=== PATIENT | female | born 1950 | race Caucasian/White ===

== ENCOUNTER 2023-10-24 11:59 | Inpatient (IN) ==
[2023-10-24] MEDS ORDERED: ONDANSETRON INJ 2 MG/ML 2 ML VIAL IV STA (12:25)
[2023-10-24] MEDS ORDERED: SODIUM CHLORIDE 0.9% 1,000 ML IV STA (12:25)
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
[2023-10-24] MEDS: MoRPHine SULFATE 4 MG/ML 1 ML CARP\\VIAL IV PRN ×6 (12:51→23:05)
[2023-10-24 13:01] LABS: Basophils # (auto) 0.05 K/uL (0.00-0.20); Basophils % (auto) 0.4 %; Eosinophils # (auto) 0.02 K/uL (0.00-0.50); Eosinophils % (auto) 0.2 %; Hematocrit (blood only) 40.8 % (37.0-47.0); Hemoglobin 14.1 g/dl (12.0-16.0); Immature Granulocytes # (auto) 0.08 K/uL (0.01-0.20); Immature Granulocytes % (auto) 0.6 %; Lymphocytes % (auto) 5.5 %; Mean Corpuscular Hemoglobin 33.8 pg (25.0-34.0); Mean Corpuscular Hgb Conc 34.6 g/dL (32.0-36.0); Mean Corpuscular Volume 97.8 fL (80.0-100.0); Monocytes # (auto) 0.68 K/uL (0.11-0.59); Monocytes % (auto) 5.3 %; Neutrophils # (auto) 11.28 K/uL (1.40-6.50); Platelet Count 273 K/uL (130-400); RDW Coefficient of Variation 11.8 % (11.5-14.5); RDW Standard Deviation 42.7 fL (36.4-46.3); Red Blood Count 4.17 M/uL (4.20-5.40); White Blood Count 12.81 K/ul (4.8-10.8)
[2023-10-24 13:11] LABS: Alanine Aminotransferase 15 U/L (7-52); Albumin Level 4.1 gm/dl (3.4-5.0); Alkaline Phosphatase 52 U/L (34-104); Anion Gap 6 (3-11); Aspartate Aminotransferase 19 U/L (13-39); BUN Creatinine Ratio 17.9 (10-20); Bilirubin,Total 0.3 mg/dl (0.2-1.0); Blood Urea Nitrogen 14 mg/dl (6-23); Calcium 8.3 mg/dl (8.6-10.3); Carbon Dioxide 27 mmol/L (21-32); Chloride 101 mmol/L (98-107); Globulin 2.1 gm/dl (2.5-4.0); Glucose 129 mg/dl (70-99(Fasting)); Lipase 6 U/L (11-82); Potassium 3.8 mmol/L (3.5-5.1); Sodium 134 mmol/L (136-145); Total Protein 6.2 gm/dl (6.0-8.3)
[2023-10-24 13:16] LABS: Troponin I High Sensitivity 7.5 pg/ml (0-14)
[2023-10-24 13:29] LABS: INR 0.9 (0.9-1.1); Partial Thromboplastin Time 27 Seconds (21-31); Prothrombin Time 10.3 Seconds (9.0-12.0)
[2023-10-24 13:49] LABS: Appearance Urine Clear (Clear); Bilirubin Urine Negative (Negative); Blood Urine Negative (Negative); Color Urine Yellow; Glucose Urine UA Negative (Negative); Ketones Urine Negative (Negative); Leukocyte Esterase Urine Negative (Negative); Nitrite Urine Negative (Negative); Protein Urine Negative (Negative); Specific Gravity Urine 1.011 (1.000-1.030); Urobilinogen Urine Negative (Negative); pH Urine 7.5 (4.5-7.5)
--- NOTE | 2023-10-24 14:25 | XRay Report ---
XR hip LT 2V w pelvis CLINICAL HISTORY: Fall. COMPARISON: CT of the abdomen and pelvis June 20, 2023. FINDINGS: Postoperative findings within the spine are incidentally noted. Sacroiliac joints and symp hysis pubis are intact. There is an acute moderately displaced significantly comminuted intertrochant madelaine fracture of the left femur. No additional acute fractures are present. IMPRESSION: Acute comminuted displaced intertrochanteric fracture of the left femur. ACT 112: Negative or not required by law. Electronically signed by: Mark Giang M.D. 10/24/2023 2:24 PM
--- NOTE | 2023-10-24 14:43 | XRay Report ---
XR chest 1V portable HISTORY: fall COMPARISON: Chest 01/26/2019. FINDINGS: Slightly rotated study. No pneumothorax. No pleural effusions. The cardiac silhouette is no rmal in size. Old left clavicle fracture again noted. No acute fractures identified. The lungs are cl ear. IMPRESSION: No acute process. ACT 112: Negative or not required by law. Electronically signed by: Bradley Trevizo M.D. 10/24/2023 2:42 PM
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
--- OUTSIDE RECORDS SUMMARY | 2023-10-24 20:10 | External Medical Summary | Continuity of Care Document ---
Author Name Unknown Organization [facility] [address] [place] [id number] Care Team Providers Care Architecture Technician Name Role Phone Nichol Pham Primary Care Physician [phone] [facility] [id number] Date(s): 07/26/23 - 07/26/23 [facility] [address] [place] [address] Medical [facility] [address] [phone] Encounter Diagnosis History of colon polyps(Discharge Diagnosis) - 07/26/23 Acquired hyperlipoproteinemia(Discharge Diagnosis) - 07/26/23 Neuropathy(Discharge Diagnosis) - 07/26/23 Neuropathic pain(Discharge Diagnosis) - 07/26/23 Hypertension(Discharge Diagnosis) - 07/26/23 Anxiety(Discharge Diagnosis) - 07/26/23 Flu vaccine need(Discharge Diagnosis) - 07/26/23 Discharge Disposition: Home or Self Care Attending Physician: ZAYRA Pham Kimberly A Allergies, Adverse Reactions, Alerts No Known Allergies Immunizations Given and Recorded Vaccine Date Status Refusal Reason influenza virus vaccine, inactivated 07/26/23 Give n influenza virus vaccine, inactivated 08/24/20 Give n influenza virus vaccine, inactivated 09/25/19 Give n influenza virus vaccine, inactivated 10/10/18 Give n pneumococcal 23-valent vaccine 09/19/19 Given tetanus/diphtheria/pertuss, acel (Tdap) 02/15/16 G iven Medications calcium carbonate 600 mg oral tablet, chewable Start: 05/25/22 12:21:00 EDT, 1 tab, PO, Daily, Disp# 60 tab, other Start Date: 05/25/22 Status: Ordered Carbatrol Start: 04/16/17 10:15:00 EDT, 300 mg =, PO, bid Start Date: 04/16/17 Status: Ordered Flexeril 10 mg oral tablet Start: 07/23/23 14:00:00 EDT, 1 tab, PO, qhs, Disp# 30 tab, Refills: 4, PRN: as needed for spasm, Pharmacy: [id number] Start Date: 07/23/23 Status: Ordered gabapentin 100 mg oral capsule Start: 06/27/23 13:35:00 EDT, 1 cap, PO, tid, Disp# 270 cap, Pharmacy: [facility] Start Date: 06/27/23 Stop Date: 09/25/23 Status: Ordered gabapentin 100 mg oral capsule Start: 04/12/23 15:24:00 EDT, See Instructions, Disp# 90 cap, Refills: 3, take 1 cap nightly for 3 days, then take 1 cap twice a day for 3 days, then take 1 cap 3 times a day, Pharmacy: [facility] Start Date: 04/12/23 Status: Ordered gabapentin 300 mg oral capsule Start: 06/27/23 13:06:00 EDT, 1 cap, PO, tid, Disp# 30 cap Start Date: 06/27/23 Status: Ordered gabapentin 300 mg oral capsule Start: 06/27/23 13:34:00 EDT, 1 cap, PO, tid, Disp# 270 cap, Refills: 1, Pharmacy: [facility] Start Date: 06/27/23 Stop Date: 12/24/23 Status: Ordered Linzess 145 mcg oral capsule Start: 06/27/23 13:07:00 EDT Start Date: 06/27/23 Status: Ordered multivitamin Start: 05/25/22 9:19:00 EDT, 1 tab, PO, Daily Start Date: 05/25/22 Status: Ordered Prolia 60 mg syringe - PROVIDER injection Start: 03/24/21 9:53:00 EDT Start Date: 03/24/21 Status: Ordered Vitamin D3 2000 intl units (50 mcg) oral capsule Start: 05/25/22 12:20:00 EDT, 1 cap, PO, Daily, Disp# 60 cap, other Start Date: 05/25/22 Status: Ordered Mental Status 07/26/23 Barriers to Learning one year None evide nt Mandatory Health Literacy Documentation Yes Health Literacy Communication Barriers N ever Primary Language Luxembourger Problem List Condition Confirmation Course Effective Dates [...] Confirmed Active Flu vaccine need Confirmed Active Neuropathic pain Confirmed Active Neuropathy of foot Confirmed Active Pain Confirmed Active Bilateral leg pain Confirmed Active Seizure Confirmed Active Seizure disorder Confirmed Active Sinusitis Confirmed Active Muscle spasm Confirmed Active Sprain of ankle Confirmed Active Postop check Confirmed Active Retained suture Confirmed Active Syncope Confirmed Active Viral gastroenteritis Confirmed Active Weight disorder Confirmed Active Diagnosis Diagnosis Type Effective Dates Health Status Clinical Service Informant Neuropathic pain Discharge Diagnosis 07/26/23 Hypertension Discharge Diagnosis 07/26/23 Anxiety Discharge Diagnosis 07/26/23 History of colon polyps Discharge Diagnosis 07/26/23 Non-Specifie d Neuropathy Discharge Diagnosis 07/26/23 Non-Specifie d Acquired hyperlipoproteinemia Discharge Diagnosis 07/26/23 Non-Specifie d Flu vaccine need Discharge Diagnosis 07/26/23 Non-Specifie d Procedures Procedure Date Related Diagnosis Body Site [...] 30 and 15 cm cold snared. recoomend [place] for EMR of polyp 5tentative repeat colo 1 year Vital Signs Most recent to oldest [Reference Range]: 1 Patient Weight 77 kg (07/26/23 4:20 PM) Temperature [36.5-37.9 DegC] 37 DegC (07/26/23 4:20 PM) Heart Rate 68 bpm (07/26/23 4:20 PM) Respiratory Rate 22 br/min (07/26/23 4:20 PM) Blood Pressure 136/72mmHg (07/26/23 4:20 PM) Cuff Pulse Pressure 64 mmHg (07/26/23 4:20 PM) Social History Social History Type Response Smoking Status Never smoked cigaret bhargavi Sex Female Implantable Device List Procedure Provider Procedure Date Device Type Site Unknown Unknown 12/25/19 Unknown Unknown Device Identifier Serial Number Lot or Batch Number Manufacturing Date Expiration Date Distinct Identification Code MRI Safety Implantable Status Assigning Authority Unknown Unknown [id number] Unknown 04/03/21 Unknown Unknown Active Unknown Unknown Unknown [id number] Unknown 08/03/21 Unknown Unknown Active Unknown Unknown Unknown [id number] Unknown 01/01/21 Unknown Unknown Active Unknown Procedure Provider Procedure Date Device Type Site Unknown Unknown 09/22/19 Unknown Unknown Device Identifier Serial Number Lot or Batch Number Manufacturing Date Expiration Date Distinct Identification Code MRI Safety Implantable Status Assigning Authority Unknown Unknown [id number] Unknown 03/04/21 Unknown Unknown Active Unknown Unknown Unknown [id number] Unknown 11/04/22 Unknown Unknown Active Unkn own Unknown Unknown [id number] Unknown 04/04/22 Unknown Unknown Active Unkn own Unknown Unknown [id number] Unknown 06/04/24 Unknown Unknown Active Unkn own Unknown Unknown [id number] Unknown 03/03/28 Unknown Unknown Active Unk nown Procedure Provider Procedure Date Device Type Site Unknown Unknown 09/16/19 Unknown Unknown Device Identifier Serial Number Lot or Batch Number Manufacturing Date Expiration Date Distinct Identification Code MRI Safety Implantable Status Assigning Authority Unknown Unknown [id number] Unknown 11/03/19 Unknown Unknown Active Unk nown [...] Unknown Unknown Active Unkn own Unknown Unknown [id number] aae Unknown 03/04/21 Unknown Unknown Active Unknown Unknown Unknown na Unknown 04/14/22 Unknown Unknown Active Unkn own Unknown Unknown na Unknown 04/14/22 Unknown Unknown Active Unkn own Unknown Unknown na Unknown 06/02/22 Unknown Unknown Active Unkn own Patient Care team information Care Team Personnel Name: ZAYRA Pham, Nichol Wen Position: Physician Upholsterer [employer] - Family Med Member Role: Primary Care Provider Address: Address: [address] [address] [place] Name: Burton Buchanan MD, Jose Bliss Position: Physician - Anesthesiologist Member Role: Lifetime Relationship Address: Address: [address] [place] [address] [place] Name: Sherice Hamlin Position: HIS Supervisor_P Member Role: HIS Lifetime Care Team Related Persons Name: LOBO HAZEL Address: home [address] [place], [place] [id number]
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
--- OUTSIDE RECORDS SUMMARY | 2023-10-24 20:10 | External Medical Summary | Continuity of Care Document ---
Author Name Unknown Organization [place] [address] [address] [place] [phone] Care Team Providers Care Acid Tank Liner Name Role Phone Ankit Nichol Bettye Primary Care Physician [phone] [id number] Date(s): 06/27/23 - 06/27/23 [facility] [address] Practice Site [address] [facility] [address] [place], [place] [address]Vpcyw [phone] Discharge Disposition: Home or Self Care Attending Physician: DO Hedrick Gretchen Elizabeth Allergies, Adverse Reactions, Alerts No Known Allergies Immunizations Given and Recorded Vaccine Date Status Refusal Reason influenza virus vaccine, inactivated 08/24/20 Give n influenza virus vaccine, inactivated 09/25/19 Give n influenza virus vaccine, inactivated 10/10/18 Give n pneumococcal 23-valent vaccine 09/19/19 Given tetanus/diphtheria/pertuss, acel (Tdap) 14/16 G iven Medications calcium carbonate 600 mg [...] Disp# 90 cap, Refills: 1, with breakfast, Pharmacy:[facility] [id number] Start Date: 04/17/21 Status: Ordered Flexeril 10 mg oral tablet Start: 06/27/23 13:36:00 EDT, 1 tab, PO, bid, Disp# 60 tab, Refills: 1, PRN: as needed for spasm, Pharmacy: [facility] Start Date: 06/27/23 Status: Ordered gabapentin 100 mg oral capsule Start: 06/27/23 13:35:00 EDT, 1 cap, PO, tid, Disp# 270 cap, Pharmacy: [facility] Start Date: 06/27/23 Stop Date: 09/25/23 Status: Ordered gabapentin 100 mg oral capsule Start: 04/12/23 15:24:00 EDT, See Instructions, Disp# 90 cap, Refills: 3, take 1 cap nightly for 3 days, then take 1 cap twice a day for 3 days, then take 1 cap 3 times a day, Pharmacy: [facility] Start Date: 04/12/23 Status: Ordered gabapentin 300 mg oral capsule Start: 06/27/23 13:06:00 EDT Start Date: 06/27/23 Status: Ordered gabapentin 300 mg oral capsule Start: 06/27/23 13:34:00 EDT, 1 cap, PO, tid, Disp# 270 cap, Refills: 1, Pharmacy: [facility] Start Date: 06/27/23 Stop Date: 12/24/23 Status: Ordered Linzess 145 mcg oral capsule Start: 06/27/23 13:07:00 EDT Start Date: 06/27/23 Status: Ordered Medrol Dosepak 4 mg oral tablet Start: 03/27/23 14:56:00 EDT, See Instructions, Disp# 21 tab, Take as directed on package labeling for 6 days., Pharmacy: [facility] Start Date: 03/27/23 Stop [...] Start Date: 05/25/22 Status: Ordered Mental Status 06/27/23 Barriers to Learning one year None evide nt Mandatory Health Literacy Documentation Yes Health Literacy Communication Barriers N ever Primary Language Honduran Problem List Condition Confirmation Course Effective Dates [...] gastroenteritis Confirmed Active Weight disorder Confirmed Active Procedures Procedure Date Related Diagnosis Body Site [...] to oldest [Reference Range]: 1 Patient Weight 77.0 kg (06/27/23 1:10 PM) Temperature [36.5-37.9 DegC] 36.8 DegC (06/27/23 1:10 PM) Blood Pressure 128/82mmHg (06/27/23 1:10 PM) BP Location # 1 Left Arm (06/27/23 1:10 PM) Social History Social History Type Response Smoking Status Never smoked cigaret bhargavi Sex Female Implantable Device List Procedure Provider Procedure Date Device Type Site Unknown Unknown 12/25/19 Unknown Unknown Device Identifier Serial Number Lot or Batch Number Manufacturing Date Expiration Date Distinct Identification Code MRI Safety Implantable Status Assigning Authority Unknown Unknown [id number] Unknown 04/03/21 Unknown Unknown Active Unknown Unknown Unknown [id number] Unknown 08/03/21 Unknown Unknown Active Unknown Unknown Unknown [id number] Unknown 01/01/21 Unknown Unknown Active Unknown Procedure Provider Procedure Date Device Type Site Unknown Unknown 09/22/19 Unknown Unknown Device Identifier Serial Number Lot or Batch Number Manufacturing Date Expiration Date Distinct Identification Code MRI Safety Implantable Status Assigning Authority Unknown Unknown [id number] Unknown 03/04/21 Unknown Unknown Active Unknown Unknown Unknown [id number] Unknown 11/04/22 Unknown Unknown Active Unkn own Unknown Unknown [id number] Unknown 04/04/22 Unknown Unknown Active Unkn own Unknown Unknown [id number] Unknown 06/04/24 Unknown Unknown Active Unkn own Unknown Unknown [id number] Unknown 03/03/28 Unknown Unknown Active Unk nown Procedure Provider Procedure Date Device Type Site Unknown Unknown 09/16/19 Unknown Unknown Device Identifier Serial Number Lot or Batch Number Manufacturing Date Expiration Date Distinct Identification Code MRI Safety Implantable Status Assigning Authority Unknown Unknown [id number] Unknown 11/03/19 Unknown Unknown Active Unk nown [...] Unknown Unknown Active Unkn own Unknown Unknown [id number] aae Unknown 03/04/21 Unknown Unknown Active Unknown Unknown Unknown na Unknown 04/14/22 Unknown Unknown Active Unkn own Unknown Unknown na Unknown 04/14/22 Unknown Unknown Active Unkn own Unknown Unknown na Unknown 06/02/22 Unknown Unknown Active Unkn own Patient Care team information Care Team Personnel Name: ZAYRA Pham Kimberly A Position: Physician Ice Rink Attendant - Family Med Member Role: Primary Care Provider Address: Address: [address] [place] [address] [place] Name: Burton Buchanan MD, Jose Bliss Position: Physician - Anesthesiologist Member Role: Lifetime Relationship Address: Address: [address] [place] [address] [place] [address] Name: Sherice Hamlin Position: HIS Supervisor_P Member Role: HIS Lifetime Care Team Related Persons Name: LOBO HAZEL Address: [address] [phone]
--- OUTSIDE RECORDS SUMMARY | 2023-10-24 20:10 | External Medical Summary | Continuity of Care Document ---
Author Name Unknown Organization [facility] [address] Le[address] [facility] [address] [place] [id number] Care Team Providers Care Locker Room Manager Name Role Phone Nichol Pham Primary Care Physician [phone] [id number] Date[facility]s): 05/31/23 - 05/31/23 [facility] [address] [facility] [place] [address] [facility] [address] [place] [address] [phone] Encounter Diagnosis Muscle spasm(Discharge Diagnosis) - 05/31/23 Cramping of feet(Discharge Diagnosis) - 05/31/23 Neuropathy of foot(Discharge Diagnosis) - 05/31/23 Discharge Disposition: Home or Self Care Attending Physician: CLYDE Good Lauren O Allergies, Adverse Reactions, Alerts No Known Allergies Assessment and Plan Extracted from: Title:Office Visit Note Author:CLYDE Good Lau ren O Date:05/31/23 1.Muscle spasm 2.Cramping of feet 3.Neuropathy of foot Discussed with herthere are no issues with her previous surgical sitein sergio transferis strong and intact. I did recommend with herclaw toes to utilizeBudin splinting as well as toe spacers for her bunions. However the majority of today's visitsurrounded muscle spasms, cramping, and neuropathy. None of these require surgical from an orthopedic standpoint. We did discuss that physical medicine and rehab may be able toassist with modalitiesto help treatthese pains as well aspotential for Botox injection should she continue having thesespasmsand cramps. Referral was placed today. We also discussed evaluating her magnesiumsupplement. If she is takingmagnesiumcitrate and may be causingmore bowel movements thandesirable which in turn may becausing electrolyte imbalance. Discussed changing this to magnesiumglycinatesupplement instead. She will also continue to follow-up with the muscle relaxer her PCP has recommendedand trial this. Follow upPRN. Diagnosis, prognosis, and plan collaboratively discussed with patient who verbalized understanding and agreement; will call with further issues or concerns. Immunizations Given and Recorded Vaccine Date Status [...] cap, Refills: 1, with breakfast, Pharmacy:[facility] [id number] Start Date: 04/17/21 Status: Ordered Flexeril 10 mg oral tablet Start: 05/30/23 15:54:00 EDT, 1 tab, PO, qhs, Disp# 15 tab, Pharmacy: [id number] Start Date: 05/30/23 Status: Ordered gabapentin 100 mg oral capsule Start: 04/12/23 15:24:00 EDT, See Instructions, Disp# 90 cap, Refills: 3, take 1 cap nightly for 3 days, then take 1 cap twice a day for 3 days, then take 1 cap 3 times a day, Pharmacy: [id number] Start Date: 04/12/23 Status: Ordered Medrol Dosepak 4 mg oral tablet Start: 03/27/23 14:56:00 EDT, See Instructions, Disp# 21 tab, Take as directed on package labeling for 6 days., Pharmacy: [id number] Start Date: 03/27/23 [...] Start Date: 05/25/22 Status: Ordered Mental Status 05/31/23 Barriers to Learning one year None evide nt Mandatory Health Literacy Documentation Yes Health Literacy Communication Barriers N ever Primary Language Danish Problem List Condition Confirmation Course Effective Dates [...] Effective Dates Health Status Clinical Service Informant Neuropathy of foot Discharge Diagnosis 05/31/23 Muscle spasm Discharge Diagnosis 05/31/23 Cramping of feet Discharge Diagnosis 05/31/23 Procedures Procedure Date Related Diagnosis Body Site [...] 30 and 15 cm cold snared. recoomend [place] for EMR of polyp 5tentative repeat colo 1 year Results Radiology Reports * Exam Date Time Procedure Performing Provider Status 05/31/23 4:08 PM XR Ankle Complete 3+ Views Right Khalif Dow; Final Notes: (XR Ankle Complete 3+ Views Right) Reason For Exam: right ankle pain XR Ankle Complete 3+ Views Right EXAMINATION: XR Foot Complete 3+ Views Right, XR Ankle Complete 3+ Views Right CLINICAL HISTORY: M79.671: Pain in right foot; Right foot pain COMPARISON: None FINDINGS: Right ankle: 3 views obtained weightbearing. No acute fracture. Symmetric ankle mortise. Intact talar dome. Osteopenia. Plantar calcaneal and Achilles enthesophytes. Normal soft tissues. Right foot: 3 views obtained weightbearing. No acute fracture. Moderate hallux valgus with increased first intermetatarsal angle and lateralization of the hallux sesamoids. Bunion and bunionette. Mild degenerative changes at the first tarsometatarsal joint. Osteopenia. IMPRESSION: Right foot hallux valgus. Bunion and bunionette. Dr. Tono Nicholson is the dictating resident. Finalized reports status indicates that the attending has reviewed the images and report, and agrees with the interpretation. Preliminary report status should be regarded as NOT interpreted by the attending radiologist. Workstation ID: [id number] Final Dictated by:DO Nicholson Avery Dictated DT/TM:05/31/2023 4:53 Resident:DO Nicholson Avery Signed by:MD Begum Eric A Signed (Electronic Signature):05/31/2023 4:52 p * Exam Date Time Procedure Performing Provider Status 05/31/23 4:08 PM XR Foot Complete 3+ Views Right Khalif Dow; Final Notes: (XR Foot Complete 3+ Views Right) Reason For Exam: Right foot pain XR Foot Complete 3+ Views Right EXAMINATION: XR Foot Complete 3+ Views Right, XR Ankle Complete 3+ Views Right CLINICAL HISTORY: M79.671: Pain in right foot; Right foot pain COMPARISON: None FINDINGS: Right ankle: 3 views obtained weightbearing. No acute fracture. Symmetric ankle mortise. Intact talar dome. Osteopenia. Plantar calcaneal and Achilles enthesophytes. Normal soft tissues. Right foot: 3 views obtained weightbearing. No acute fracture. Moderate hallux valgus with increased first intermetatarsal angle and lateralization of the hallux sesamoids. Bunion and bunionette. Mild degenerative changes at the first tarsometatarsal joint. Osteopenia. IMPRESSION: Right foot hallux valgus. Bunion and bunionette. Dr. Tono Nicholson is the dictating resident. Finalized reports status indicates that the attending has reviewed the images and report, and agrees with the interpretation. Preliminary report status should be regarded as NOT interpreted by the attending radiologist. Workstation ID: [id number] Final Dictated by:DO Nicholson Avery Dictated DT/TM:05/31/2023 4:53 Resident:DO Nicholson Avery Signed by:MD Begum Eric A Signed (Electronic Signature):05/31/2023 4:52 p * Exam Date Time Procedure Performing Provider Status 05/31/23 4:08 PM XR Ankle Complete 3+ Views Left Khalif Dow; Final Notes: (XR Ankle Complete 3+ Views Left) Reason For Exam: Left ankle pain XR Ankle Complete 3+ Views Left EXAMINATION: XR Foot Complete 3+ Views Left, XR Ankle Complete 3+ Views Left CLINICAL HISTORY: M79.672: Pain in left foot; Left foot pain COMPARISON: Left foot radiographs 12/25/2019. Left ankle radiographs 02/09/2020 FINDINGS: Left ankle: 3 views obtained weightbearing. Unchanged chronic fractures of the posterior talus and distal fibula. Symmetric ankle mortise. Intact talar dome. Osteopenia. Plantar calcaneal and Achilles enthesophytes. Mild degenerative changes at the talonavicular joint. Normal soft tissues. Left foot: 3 views obtained weightbearing. Multiple unchanged healed fractures including at the fourth fifth metatarsals. Severe hallux valgus with increased first intermetatarsal angle and lateralization of the hallux sesamoids. Bunion. Moderate degenerative changes throughout the tarsometatarsal joints. Osteopenia. IMPRESSION: 1. Left foot severe hallux valgus and osseous bunion. 2. Multiple healed fractures, unchanged. Dr. Tono Nicholson is the dictating resident. Finalized reports status indicates that the attending has reviewed the images and report, and agrees with the interpretation. Preliminary report status should be regarded as NOT interpreted by the attending radiologist. Workstation ID: [id number] Final Dictated by:DO Nicholson Avery Dictated DT/TM:05/31/2023 4:50 Resident:DO Nicholson Avery Signed by:MD Begum Eric A Signed (Electronic Signature):05/31/2023 4:49 p * Exam Date Time Procedure Performing Provider Status 05/31/23 4:08 PM XR Foot Complete 3+ Views Left Dakota Dow; Final Notes: (XR Foot Complete 3+ Views Left) Reason For Exam: Left foot pain XR Foot Complete 3+ Views Left EXAMINATION: XR Foot Complete 3+ Views Left, XR Ankle Complete 3+ Views Left CLINICAL HISTORY: M79.672: Pain in left foot; Left foot pain COMPARISON: Left foot radiographs 12/25/2019. Left ankle radiographs 02/09/2020 FINDINGS: Left ankle: 3 views obtained weightbearing. Unchanged chronic fractures of the posterior talus and distal fibula. Symmetric ankle mortise. Intact talar dome. Osteopenia. Plantar calcaneal and Achilles enthesophytes. Mild degenerative changes at the talonavicular joint. Normal soft tissues. Left foot: 3 views obtained weightbearing. Multiple unchanged healed fractures including at the fourth fifth metatarsals. Severe hallux valgus with increased first intermetatarsal angle and lateralization of the hallux sesamoids. Bunion. Moderate degenerative changes throughout the tarsometatarsal joints. Osteopenia. IMPRESSION: 1. Left foot severe hallux valgus and osseous bunion. 2. Multiple healed fractures, unchanged. Dr. Tono Nicholson is the dictating resident. Finalized reports status indicates that the attending has reviewed the images and report, and agrees with the interpretation. Preliminary report status should be regarded as NOT interpreted by the attending radiologist. Workstation ID: [id number] Final Dictated by:DO Nicholson Avery Dictated DT/TM:05/31/2023 4:50 Resident:DO Nicholson Avery Signed by:MD Begum Eric A Signed (Electronic Signature):05/31/2023 4:49 p Social History Social History Type Response Smoking Status Never smoked cigaret bhargavi Sex Female Implantable Device List Procedure Provider Procedure Date Device Type Site Unknown Unknown 12/25/19 Unknown Unknown Device Identifier Serial Number Lot or Batch Number Manufacturing Date Expiration Date Distinct Identification Code MRI Safety Implantable Status Assigning Authority Unknown Unknown [id number] Unknown 04/03/21 Unknown Unknown Active Unknown Unknown Unknown [id number] Unknown 08/03/21 Unknown Unknown Active Unknown Unknown Unknown [id number] Unknown 01/01/21 Unknown Unknown Active Unknown Procedure Provider Procedure Date Device Type Site Unknown Unknown 09/22/19 Unknown Unknown Device Identifier Serial Number Lot or Batch Number Manufacturing Date Expiration Date Distinct Identification Code MRI Safety Implantable Status Assigning Authority Unknown Unknown [id number] AAE Unknown 03/04/21 Unknown Unknown Active Unknown Unknown Unknown [id number] Unknown 11/04/22 Unknown Unknown Active Unkn own Unknown Unknown [id number] Unknown 04/04/22 Unknown Unknown Active Unkn own Unknown Unknown [id number] Unknown 06/04/24 Unknown Unknown Active Unkn own Unknown Unknown [id number] Unknown 03/03/28 Unknown Unknown Active Unk nown Procedure Provider Procedure Date Device Type Site Unknown Unknown 09/16/19 Unknown Unknown Device Identifier Serial Number Lot or Batch Number Manufacturing Date Expiration Date Distinct Identification Code MRI Safety Implantable Status Assigning Authority Unknown Unknown [id number] Unknown 11/03/19 Unknown Unknown Active Unk nown [...] Unknown Unknown Active Unkn own Unknown Unknown [id number] aae Unknown 03/04/21 Unknown Unknown Active Unknown Unknown Unknown na Unknown 04/14/22 Unknown Unknown Active Unkn own Unknown Unknown na Unknown 04/14/22 Unknown Unknown Active Unkn own Unknown Unknown na Unknown 06/02/22 Unknown Unknown Active Unkn own Primary care Note * CLYDE Good Lauren O: PERFORM Event Display: Ortho Outpt Note Authored Date: [id number] Chief Complaint bilateral foot and ankle pain History of Present Illness Edilia Loyola is a pleasant 72-year-old femalehere todayfor bilateral foot and ankle pain. She had a previous surgery on 12/25/[address] Pacheco for left foot drop with less posterior tibial tendon transfer, peroneus brevis transfer, tibialis anterior and FDL transfer to peroneus brevis. Reports approximately 1 month ago she began having muscle cramps and spasms through her calfcausingcontractures through thebilateralfoot and toes. She reports her primary care provider has recommendeda muscle relaxer howeverthey are working with insurance to get this covered. In thepast she has beenreferred to physical medicine and rehab for Botox injections by Dr. Pachecohowever never had these completed. When the spasms occur its mostly at nightbut there are times when it happens during the day and causes much pain. She notices that there is ashooting pain that comes from her backas well as her abdominal areawhen this happens. She has hadlumbar back noris gerywith Dr. Hatch in the past and reports her back painhas improved since then. Of note she also deals with GI issuesand will be going on a new medication for this. States she goes tousethe restroom forbowel movementsseveral times a day. Reports she is taking an aesx-bys-dojccwy magnesium supplement. Reports she continues to deal with neuropathy pain to bilateral feet. Review of Systems Positive for stated above. Otherwise denies fever, sweats, chills, n/v/d, SOB/CP, headache, or calf pain. Physical Exam General:AAOx3; no acute distress,calm and cooperative on exam HEENT:EOMI; normocephalic Lungs:Non labored breathing Cardiac:brisk capillary refill to all toes, heart rate palpable to DP/PT pulses Extremities:Has clawing of the lesser toes bilaterally, hashallux valgus bilaterally. Pes cavus arch upon standing. Excellent strength with plantarflexion/dorsiflexion to the leftfootminimally withinversion/eversion. calf is supple, no palpable cords. Neuro:gross sensation diminished which is baseline Skin:no erythema; no warmth; skin intact; no edema Diagnostic Results X-raysof theBilateral feet and ankles3 views weight bearing ordered today, interpreted by myself, and discussed with the patient showing: (05/31/2023 16:08 EDT XR Ankle Complete 3+ Views Left) FINDINGS: Left ankle: 3 views obtained weightbearing. Unchanged chronic fractures of the posterior talus and distal fibula. Symmetric ankle mortise. Intact talar dome. Osteopenia. Plantar calcaneal and Achilles enthesophytes. Mild degenerative changes at the talonavicular joint. Normal soft tissues. Left foot: 3 views obtained weightbearing. Multiple unchanged healed fractures including at the fourth fifth metatarsals. Severe hallux valgus with increased first intermetatarsal angle and lateralization of the hallux sesamoids. Bunion. Moderate degenerative changes throughout the tarsometatarsal joints. Osteopenia. IMPRESSION: 1. Left foot severe hallux valgus and osseous bunion. 2. Multiple healed fractures, unchanged. [1] Assessment/Plan 1.Muscle spasm 2.Cramping of feet 3.Neuropathy of foot Discussed with thersunil are no issues with her previous surgical sitein sergio transferis strong and intact. I did recommend with brea toes to utilizeBudin splinting as well as toe spacers for her bunions. However the majority of today's visitsurrounded muscle spasms, cramping, and neuropathy. None of these require surgical from an orthopedic standpoint. We did discussthat physical medicine and rehab may be able toassist with modalitiesto help treatthese painsas well aspotential for Botox injection should she continue having thesespasmsand cramps. Referral was placed today. We also discussed evaluating her magnesiumsupplement. If she is takingmagnesiumcitrate and may be causingmore bowel movements thandesirable which in turn may becausing electrolyte imbalance. Discussed changing this to magnesiumglycinatesupplement instead. She will also continue to follow-up with the muscle relaxer her PCP has recommendedand trial this. Follow upPRN. Diagnosis, prognosis, and plan collaboratively discussed with patient who verbalized understanding and agreement; will call with further issues or concerns. Problem List/Past Medical History Ongoing Abnormal mammography [...] Vaccine due05/04/23and every 1year Adult COVID-19 Vaccination due05/31/23Unknown Frequency Breast Cancer Screening due05/31/23and every 731day Hepatitis C Screening due05/31/23One-time only Medicare Annual Wellness Visit due05/31/23and every 1year Shingles Vaccine due05/31/23One-time only Due In Future Lipid Screening not due until02/16/24and every 1826day Body Mass Index not due until05/29/24and every 1year Satisfied(in the past 1 year) Satisfied Body Mass Index on03/27/23.Satisfied by DENISSE Greene [place] [1]XR Ankle Complete 3+ Views Left; MD Begum Eric A 05/31/2023 16:08 EDT Electronic Signature on File Electronically Reviewed/Signed by: CLYDE Meza Author Signature Dt/Tm:05/31/2023 05:26 PM Division of Orthopaedics LOB XR Ankle - right GE 3 Views * MD Begum Eric A: VERIFY, VERIFY MD Begum Eric A: VERIFY Contributor_system, [id number]: PERFORM DO Nicholson Avery: SIGN Event Display: Report Authored Date: [id number] EXAMINATION: XR Foot Complete 3+ Views Right, XR Ankle Complete 3+ Views Right CLINICAL HISTORY: M79.671: Pain in right foot; Right foot pain COMPARISON: None FINDINGS: Right ankle: 3 views obtained weightbearing. No acute fracture. Symmetric ankle mortise. Intact talar dome. Osteopenia. Plantar calcaneal and Achilles enthesophytes. Normal soft tissues. Right foot: 3 views obtained weightbearing. No acute fracture. Moderate hallux valgus with increased first intermetatarsal angle and lateralization of the hallux sesamoids. Bunion and bunionette. Mild degenerative changes at the first tarsometatarsal joint. Osteopenia. IMPRESSION: Right foot hallux valgus. Bunion and bunionette. Dr. Tono Nicholson is the dictating resident. Finalized reports status indicates that the attending has reviewed the images and report, and agrees with the interpretation. Preliminary report status should be regarded as NOT interpreted by the attending radiologist. Workstation ID: [id number] Final Dictated by:DO Nicholson Avery Dictated DT/TM:05/31/2023 4:53 Resident:DO Nicholson Avery Signed by:MD Begum Eric A Signed (Electronic Signature):05/31/2023 4:52 p XR Foot - right GE 3 Views * MD Begum Eric A: VERIFY, VERIFY MD Begum Eric A: VERIFY Contributor_system, [id number]: PERFORM DO Nicholson Avery: SIGN Event Display: Report Authored Date: EXAMINATION: XR Foot Complete 3+ Views Right, XR Ankle Complete 3+ Views Right CLINICAL HISTORY: M79.671: Pain in right foot; Right foot pain COMPARISON: None FINDINGS: Right ankle: 3 views obtained weightbearing. No acute fracture. Symmetric ankle mortise. Intact talar dome. Osteopenia. Plantar calcaneal and Achilles enthesophytes. Normal soft tissues. Right foot: 3 views obtained weightbearing. No acute fracture. Moderate hallux valgus with increased first intermetatarsal angle and lateralization of the hallux sesamoids. Bunion and bunionette. Mild degenerative changes at the first tarsometatarsal joint. Osteopenia. IMPRESSION: Right foot hallux valgus. Bunion and bunionette. Dr. Tono Nicholson is the dictating resident. Finalized reports status indicates that the attending has reviewed the images and report, and agrees with the interpretation. Preliminary report status should be regarded as NOT interpreted by the attending radiologist. Workstation ID: [id number] Final Dictated by:DO Nicholson Avery Dictated DT/TM:05/31/2023 4:53 Resident:DO Nicholson Avery Signed by:MD Begum Eric A Signed (Electronic Signature):05/31/2023 4:52 p XR Ankle - left GE 3 Views * MD Begum Eric A: VERIFY, VERIFY MD Begum Eric A: VERIFY Contributor_system, [id number]: PERFORM DO Nicholson Avery: SIGN Event Display: Report Authored Date: [id number] EXAMINATION: XR Foot Complete 3+ Views Left, XR Ankle Complete 3+ Views Left CLINICAL HISTORY: M79.672: Pain in left foot; Left foot pain COMPARISON: Left foot radiographs 12/25/2019. Left ankle radiographs 02/09/2020 FINDINGS: Left ankle: 3 views obtained weightbearing. Unchanged chronic fractures of the posterior talus and distal fibula. Symmetric ankle mortise. Intact talar dome. Osteopenia. Plantar calcaneal and Achilles enthesophytes. Mild degenerative changes at the talonavicular joint. Normal soft tissues. Left foot: 3 views obtained weightbearing. Multiple unchanged healed fractures including at the fourth fifth metatarsals. Severe hallux valgus with increased first intermetatarsal angle and lateralization of the hallux sesamoids. Bunion. Moderate degenerative changes throughout the tarsometatarsal joints. Osteopenia. IMPRESSION: 1. Left foot severe hallux valgus and osseous bunion. 2. Multiple healed fractures, unchanged. Dr. Tono Nicholson is the dictating resident. Finalized reports status indicates that the attending has reviewed the images and report, and agrees with the interpretation. Preliminary report status should be regarded as NOT interpreted by the attending radiologist. Workstation ID: [id number] Final Dictated by:DO Nicholson Avery Dictated DT/TM:05/31/2023 4:50 Resident:DO Nicholson Avery Signed by:MD Begum Eric A Signed (Electronic Signature):05/31/2023 4:49 p XR Foot - left GE 3 Views * MD Begum Eric A: VERIFY, VERIFY MD Begum Eric A: VERIFY Contributor_system, [id number]: PERFORM DO Nicholson Avery: SIGN Event Display: Report Authored Date: [id number] EXAMINATION: XR Foot Complete 3+ Views Left, XR Ankle Complete 3+ Views Left CLINICAL HISTORY: M79.672: Pain in left foot; Left foot pain COMPARISON: Left foot radiographs 12/25/2019. Left ankle radiographs 02/09/2020 FINDINGS: Left ankle: 3 views obtained weightbearing. Unchanged chronic fractures of the posterior talus and distal fibula. Symmetric ankle mortise. Intact talar dome. Osteopenia. Plantar calcaneal and Achilles enthesophytes. Mild degenerative changes at the talonavicular joint. Normal soft tissues. Left foot: 3 views obtained weightbearing. Multiple unchanged healed fractures including at the fourth fifth metatarsals. Severe hallux valgus with increased first intermetatarsal angle and lateralization of the hallux sesamoids. Bunion. Moderate degenerative changes throughout the tarsometatarsal joints. Osteopenia. IMPRESSION: 1. Left foot severe hallux valgus and osseous bunion. 2. Multiple healed fractures, unchanged. Dr. Tono Nicholson is the dictating resident. Finalized reports status indicates that the attending has reviewed the images and report, and agrees with the interpretation. Preliminary report status should be regarded as NOT interpreted by the attending radiologist. Workstation ID: [id number] Final Dictated by:DO Nicholson Avery Dictated DT/TM:05/31/2023 4:50 Resident:DO Nicholson Avery Signed by:MD Begum Eric A Signed (Electronic Signature):05/31/2023 4:49 p Patient Care team information Care Team Personnel Name: ZAYRA Pham, Nichol Wen Position: Physician Pricing Director - Family Med Member Role: Primary Care Provider Address: Address: [address] [address] [place] Name: Burton Buchanan MD, Jose Bliss Position: Physician - Anesthesiologist Member Role: Lifetime Relationship Address: Address: [address] [place] [id number] [place] Name: Sherice Hamlin Position: HIS Supervisor_P Member Role: HIS Lifetime Care Team Related Persons Name: LOBO HAZEL Address: home [address] [place] [phone]
--- OUTSIDE RECORDS SUMMARY | 2023-10-24 20:10 | External Medical Summary | Continuity of Care Document ---
Author Name Unknown Organization [facility] [address] [address] Address [address] [facility] KATY VALERIO [address] [phone] Care Team Providers Care Weather Teacher Name Role Phone Nichol Pham Primary Care Physician [phone] Encounter [facility] [id number] Date(s): 08/19/23 - 08/19/23 [facility] [address] [facility] 101 [facility] Physical Medicine and Rehabilitation [address] [id number] [phone] Encounter Diagnosis Numbness and tingling of both legs(Discharge Diagnosis) - 08/19/23 Discharge Disposition: Home or Self Care Attending Physician: DO Villanueva Samantha C Referring Physician: ZAYRA Pham Kimberly A Allergies, Adverse [...] 4, PRN: as needed for spasm, Pharmacy: [facility] Start Date: 07/23/23 Status: Ordered gabapentin 100 mg oral capsule Start: 06/27/23 13:35:00 EDT, 1 cap, PO, tid, Disp# 270 cap, Pharmacy: [facility] Start Date: 06/27/23 Stop Date: 09/25/23 Status: Ordered gabapentin 100 mg oral capsule Start: 04/12/23 15:24:00 EDT, See Instructions, Disp# 90 cap, Refills: 3, take 1 cap nightly for 3 days, then take 1 cap twice a day for 3 days, then take 1 cap 3 times a day, Pharmacy: [facility] Start Date: 04/12/23 Status: Ordered gabapentin 300 mg oral capsule Start: 06/27/23 13:06:00 EDT, 1 cap, PO, tid, Disp# 30 cap Start Date: 06/27/23 Status: Ordered gabapentin 300 mg oral capsule Start: 06/27/23 13:34:00 EDT, 1 cap, PO, tid, Disp# 270 cap, Refills: 1, Pharmacy: [facility] Start Date: 06/27/23 Stop Date: [...] cap, other Start Date: 05/25/22 Status: Ordered Problem List Condition Confirmation Course Effective Dates [...] Dates Health Status Cl inical Service Informant Numbness and tingling of both legs Discharge Diagnosis 08/19/23 Non-Specified Procedures Procedure Date Related Diagnosis Body [...] Safety Implantable Status Assigning Authority Unknown Unknown [id number] Unknown 04/03/21 Unknown Unknown Active Unknown Unknown Unknown [id number] 2 Unknown 08/03/21 Unknown Unknown Active Unknown Unknown Unknown [id number] Unknown 01/01/21 Unknown Unknown Active Unknown Procedure Provider Procedure Date Device Type Site Unknown Unknown 09/22/19 Unknown Unknown Device Identifier Serial Number Lot or Batch Number Manufacturing Date Expiration Date Distinct Identification Code MRI Safety Implantable Status Assigning Authority Unknown Unknown [id number] Unknown 03/04/21 Unknown Unknown Active Unknown Unknown Unknown [id number] Unknown 11/04/22 Unknown Unknown Active Unkn own Unknown Unknown [id number] Unknown 04/04/22 Unknown Unknown Active Unkn own Unknown Unknown [id number] Unknown 06/04/24 Unknown Unknown Active Unkn own Unknown Unknown [id number] Unknown 03/03/28 Unknown Unknown Active Unk nown Procedure Provider Procedure Date Device Type Site Unknown Unknown 09/16/19 Unknown Unknown Device Identifier Serial Number Lot or Batch Number Manufacturing Date Expiration Date Distinct Identification Code MRI Safety Implantable Status Assigning Authority Unknown Unknown [id number] Unknown 11/03/19 Unknown Unknown Active Unk nown [...] Unknown Unknown Active Unkn own Unknown Unknown [id number] aae Unknown 03/04/21 Unknown Unknown Active Unknown Unknown Unknown na Unknown 04/14/22 Unknown Unknown Active Unkn own Unknown Unknown na Unknown 04/14/22 Unknown Unknown Active Unkn own Unknown Unknown na Unknown 06/02/22 Unknown Unknown Active Unkn own Patient Care team information Care Team Personnel Name: ZAYRA Pham, Nichol Wen Position: Physician Real Estate Investment Analyst - Family Med Member Role: Primary Care Provider Address: Address: [address] [place] [address] [place] Name: Burton Buchanan MD, Jose Bliss Position: Physician - Anesthesiologist Member Role: Lifetime Relationship Address: Address: [address] [place] [address] [place] Name: Sherice Hamlin Position: HIS Supervisor_P Member Role: HIS Lifetime Care Team Related Persons Name: LOBO HAZEL Address: home [address] [place] [phone]
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
--- OUTSIDE RECORDS SUMMARY | 2023-10-24 20:11 | External Medical Summary | Continuity of Care Document ---
Author Name Unknown Organization [facility] [address] [place], [place] [id number] Care Team Providers Care Basin Tender Name Role Phone Juan Barrera Primary Care Physician [phone] Encounter [facility] [id number] Date(s): 05/15/23 - 05/15/23 [facility] [address] [facility] [address] [facility] 1 [place], [place] [phone] Encounter Diagnosis Age-related osteoporosis without current pathological fracture(Final) - Vitamin D deficiency, unspecified(Final) - Discharge Disposition: Home or Self Care Attending Physician: MD Stinson Edward J Referring Physician: MD Stinson Edward J Allergies, Adverse Reactions, Alerts No Known Allergies Immunizations Given and Recorded Vaccine Date Status Refusal Reason influenza virus vaccine, inactivated 08/24/20 Give n influenza virus vaccine, inactivated 09/25/19 Give n influenza virus vaccine, inactivated 10/10/18 Give n pneumococcal 23-valent vaccine 09/19/19 Given tetanus/diphtheria/pertuss, acel (Tdap) 02/15/16 G iven Medications Augmentin 875 mg-125 mg oral tablet Start: 11/20/22 16:47:00 EST, amoxicillin 1 tab, PO, q12h, Disp# 10, Refills: 0, Pharmacy: [facility] Start Date: 11/20/22 Status: Ordered [...] Disp# 90 cap, Refills: 1, with breakfast, Pharmacy:[facility] Start Date: 04/17/21 Status: Ordered gabapentin 100 mg oral capsule Start: 04/12/23 15:24:00 EDT, See Instructions, Disp# 90 cap, Refills: 3, take 1 cap nightly for 3 days, then take 1 cap twice a day for 3 days, then take 1 cap 3 times a day, Pharmacy: [facility] Start Date: 04/12/23 Status: Ordered Medrol Dosepak 4 mg oral tablet Start: 03/27/23 14:56:00 EDT, See Instructions, Disp# 21 tab, Take as directed on package labeling for 6 days., Pharmacy: [facility] Start Date: 03/27/23 [...] 30 and 15 cm cold snared. recoomend [facility] for EMR of polyp 5tentative repeat colo 1 year Results Laboratory List Name Date Calcium Level (CALCIUM) 05/15/23 Parathyroid Hormone, Intact (PTH, INTACT ) 05/15/23 Vitamin D, 25-Hydroxy Level, Total (25-H YDROXY VITAMIN D) 05/15/23 Most recent to oldest [Reference Range]: 1 Vitamin D, 25-Hydroxy [30-100 ng/mL] 53 ng/mL 1 (05/15/23 3:51 PM) Ca [8.4-10.2 mg/dL] 9.0 mg/dL 2 (05/15/23 3:51 PM) PTH Intact [15.0-65.0 pg/mL] 54.3 pg/mL (05/15/23 3:51 PM) 1Result Comment: Deficiency: <20 ng/mL Insufficiency: 21-29 ng/mL Sufficiency: 30-100 ng/mL Potenial Toxicity: >150 ng/mL 2Result Comment: Testing Performed By: Dept of Pathology [facility] [address], [address], [place] [address] Social History Social History Type Response Smoking Status Never smoked cigaret bhargavi Sex Female Implantable Device List Procedure Provider Procedure Date Device Type Site Unknown Unknown 12/25/19 Unknown Unknown Device Identifier Serial Number Lot or Batch Number Manufacturing Date Expiration Date Distinct Identification Code MRI Safety Implantable Status Assigning Authority Unknown Unknown [id number] Unknown 04/03/21 Unknown Unknown Active Unknown Unknown Unknown [id number] 2 Unknown 08/03/21 Unknown Unknown Active Unknown Unknown Unknown [id number] Unknown 01/01/21 Unknown Unknown Active Unknown Procedure Provider Procedure Date Device Type Site Unknown Unknown 09/22/19 Unknown Unknown Device Identifier Serial Number Lot or Batch Number Manufacturing Date Expiration Date Distinct Identification Code MRI Safety Implantable Status Assigning Authority Unknown Unknown [id number] Unknown 03/04/21 Unknown Unknown Active Unknown Unknown Unknown [id number] Unknown 11/04/22 Unknown Unknown Active Unkn own Unknown Unknown [id number] Unknown 04/04/22 Unknown Unknown Active Unkn own Unknown Unknown [id number] Unknown 06/04/24 Unknown Unknown Active Unkn own Unknown Unknown [id number] Unknown 03/03/28 Unknown Unknown Active Unk nown Procedure Provider Procedure Date Device Type Site Unknown Unknown 09/16/19 Unknown Unknown Device Identifier Serial Number Lot or Batch Number Manufacturing Date Expiration Date Distinct Identification Code MRI Safety Implantable Status Assigning Authority Unknown Unknown [id number] Unknown 11/03/19 Unknown Unknown Active Unk nown [...] Unknown Unknown Active Unkn own Unknown Unknown [id number] aae Unknown 03/04/21 Unknown Unknown Active Unknown Unknown Unknown na Unknown 04/14/22 Unknown Unknown Active Unkn own Unknown Unknown na Unknown 04/14/22 Unknown Unknown Active Unkn own Unknown Unknown na Unknown 06/02/22 Unknown Unknown Active Unkn own Patient Care team information Care Team Personnel Name: Burton Buchanan MD, Jose Bliss Position: Physician - Anesthesiologist Member Role: Lifetime Relationship Address: Address: [address] [place] [address] [place] Name: Sherice Hamlin Position: HIS Supervisor_P Member Role: HIS Lifetime Care Team Related Persons Name: LOBO HAZEL Address: home [address], [place] [phone]
[2023-10-24] MEDS ORDERED: MAGNESIUM HYDROXIDE SUSP 30 ML UDC PO PRN (21:02)
[2023-10-24] MEDS ORDERED: CYCLOBENZAPRINE HCL 10 MG TAB PO PRN (21:02)
[2023-10-24] MEDS ORDERED: MoRPHine SULFATE 2 MG/ML CARP IV PRN (21:02)
[2023-10-24] MEDS ORDERED: LACTULOSE SYRUP 20 GM/30 ML UDC PO PRN (21:02)
[2023-10-24] MEDS ORDERED: NALOXONE HCL 0.4 MG/1 ML VIAL/CARP IV PRN (21:02)
[2023-10-24] MEDS ORDERED: bisacodyL 10 MG SUPP PR PRN (21:02)
[2023-10-24] MEDS ORDERED: ONDANSETRON INJ 2 MG/ML 2 ML VIAL IV PRN (21:02)
[2023-10-24] MEDS: carBAMazepine XR 100 MG TABCR PO SCH (21:55)
[2023-10-24] MEDS: SODIUM CHLOR 0.45% + 20MEQ KCL 20 MEQ/1,000 ML BAG IV SCH (21:55)
[2023-10-25] MEDS ORDERED: HYDROmorphone INJ 1 MG/ML SYRINGE IV STA ×2 (00:39→04:10)
[2023-10-25] MEDS: MoRPHine SULFATE 4 MG/ML 1 ML CARP\\VIAL IV PRN ×3 (03:10→10:06)
[2023-10-25] MEDS ORDERED: SCOPOLAMINE 1 MG TDSY TD SCH (06:00)
[2023-10-25] MEDS ORDERED: FAMOTIDINE 20 MG TAB PO SCH (06:00)
[2023-10-25] MEDS ORDERED: ceFAZolin 2000MG 2,000 MG/15 ML SYR IV SCH (06:00)
[2023-10-25 07:58] LABS: Basophils # (auto) 0.02 K/uL (0.00-0.20); Basophils % (auto) 0.4 %; Eosinophils # (auto) 0.06 K/uL (0.00-0.50); Eosinophils % (auto) 1.1 %; Hematocrit (blood only) 39.6 % (37.0-47.0); Immature Granulocytes # (auto) 0.02 K/uL (0.01-0.20); Immature Granulocytes % (auto) 0.4 %; Lymphocytes # (auto) 1.18 K/uL (1.20-3.40); Lymphocytes % (auto) 21.1 %; Mean Corpuscular Hemoglobin 33.4 pg (25.0-34.0); Mean Corpuscular Hgb Conc 32.8 g/dL (32.0-36.0); Mean Corpuscular Volume 101.8 fL (80.0-100.0); Monocytes % (auto) 19.7 %; Neutrophils % (auto) 57.3 %; Platelet Count 270 K/uL (130-400); RDW Standard Deviation 44.9 fL (36.4-46.3); Red Blood Count 3.89 M/uL (4.20-5.40); White Blood Count 5.58 K/ul (4.8-10.8)
[2023-10-25] MEDS: carBAMazepine XR 100 MG TABCR PO SCH ×2 (08:11→21:41)
[2023-10-25] MEDS ORDERED: SODIUM CHLORIDE 0.9% 1,000 ML IV SCH (08:30)
--- NOTE | 2023-10-25 10:00 | Orthopedic Progress Note ---
Date of Service October 25, 2023 Assessment & Plan (1) Closed intertrochanteric fracture of left hip: Plan: The patient is a 73 year old female who sustained a left hip fracture from a ground level fall. The patients treatment options of conservative versus s urgical intervention were discussed. Since the patient was an ambulatory prior to the injury and to avoid the risks of bed sores, pulmonary complications, and to give the best chance for ambulation, I recommended surgery. The patient understands the risks of surgery, which include but are not limited to: bleeding, infection, re-operation, damage to nerves and arteries, continued pain, failure of the hardware, mal-union, non-union, DVT, and . In addition the patient is aware of the 20-30% morbidity associated with hip fracture for up to 1 year following a hip fracture. The patient has elected to proceed with surgery and the informed consent was signed yesterday. The patient understands all of these instructions and explanations, all of their questions have been satisfactorily addressed. Patient has been admitted to the hospitalist service and continue care. Placed on the add-on schedule for later today. Will proceed with surgery if medically stable. Patient has been NPO after midnight. The patient will be NWB. Left hip initialled. TEDs and foot pumps to RLE. Antibiotics child development consultant to OR. Present on Admission?: Yes Admission and Anticipated Discharge Date Admission Date: October 24, 2023 Subjective Pain left hip Physical Exam Physical Exam: LLE: Sensation to light touch unchanged. BCR < 2 sec. Wiggling toes and ankle. Shortened and internally rotated. + TTP hip. Results & Data Vital Signs (Past 12 Hours) Vital Signs Temp Pulse Resp BP Pulse Ox O2 Del Method O2 Flow Rate 10/25/23 07:19 36.8 C 83 16 137/77 93 Room Air 10/25/23 01:02 36.8 C 75 16 134/86 98 Nasal Cannula 2 Laboratory Results Laboratory Results WBC 5.58 K/ul (4.8-10.8) 10/25/23 07:01 RBC 3.89 M/uL (4.20-5.40) L 10/25/23 07:01 Hgb 13.0 g/dl (12.0-16.0) 10/25/23 07:01 Hct 39.6 % (37.0-47.0) 10/25/23 07:01 MCV 101.8 fL (80.0-100.0) H 10/25/23 07:01 MCH 33.4 pg (25.0-34.0) 10/25/23 07:01 MCHC 32.8 g/dL (32.0-36.0) 10/25/23 07:01 RDW Std Deviation 44.9 fL (36.4-46.3) 10/25/23 07:01 RDW Coeff of Gustavo 12.0 % (11.5-14.5) 10/25/23 07:01 Plt Count 270 K/uL (130-400) 10/25/23 07:01 MPV 9.0 fL (9.4-12.4) L 10/25/23 07:01 Immature Gran % (Auto) 0.4 % 10/25/23 07:01 Neut % (Auto) 57.3 % 10/25/23 07:01 Lymph % (Auto) 21.1 % 10/25/23 07:01 [place] % (Auto) 19.7 % 10/25/23 07:01 Eos % (Auto) 1.1 % 10/25/23 07:01 Baso % (Auto) 0.4 % 10/25/23 07:01 Neut # (Auto) 3.20 K/uL (1.40-6.50) 10/25/23 07:01 Lymph # (Auto) 1.18 K/uL (1.20-3.40) L 10/25/23 07:01 [place] # (Auto) 1.10 K/uL (0.11-0.59) H 10/25/23 07:01 Eos # (Auto) 0.06 K/uL (0.00-0.50) 10/25/23 07:01 Baso # (Auto) 0.02 K/uL (0.00-0.20) 10/25/23 07:01 Immature Gran # (Auto) 0.02 K/uL (0.01-0.20) 10/25/23 07:01 PT 10.3 Seconds (9.0-12.0) 10/24/23 12:33 INR 0.9 (0.9-1.1) 10/24/23 12:33 APTT 27 Seconds (21-31) 10/24/23 12:33 PTT Ratio 1.0 10/24/23 12:33 Sodium 134 mmol/L (136-145) L 10/24/23 12:33 Potassium 3.8 mmol/L (3.5-5.1) 10/24/23 12:33 Chloride 101 mmol/L (98-107) 10/24/23 12:33 Carbon Dioxide 27 mmol/L (21-32) 10/24/23 12:33 Anion Gap 6 (3-11) 10/24/23 12:33 BUN 14 mg/dl (6-23) 10/24/23 12:33 Creatinine 0.78 mg/dl (0.6-1.2) 10/24/23 12:33 Est Cr Clr Drug Dosing Not Reportable 10/24/23 12:33 Est GFR ( Amer) 88.0 ml/min 10/24/23 12:33 Est GFR (Non-Af Amer) 76.0 ml/min 10/24/23 12:33 BUN/Creatinine Ratio 17.9 (10-20) 10/24/23 12:33 Glucose 129 mg/dl (70-99(Fasting)) H 10/24/23 12:33 Calcium 8.3 mg/dl (8.6-10.3) L 10/24/23 12:33 Total Bilirubin 0.3 mg/dl (0.2-1.0) 10/24/23 12:33 AST 19 U/L (13-39) 10/24/23 12:33 ALT 15 U/L (7-52) 10/24/23 12:33 Alkaline Phosphatase 52 U/L (34-104) 10/24/23 12:33 Troponin I High Sens 7.5 pg/ml (0-14) 10/24/23 12:33 Total Protein 6.2 gm/dl (6.0-8.3) 10/24/23 12:33 Albumin 4.1 gm/dl (3.4-5.0) 10/24/23 12:33 Globulin 2.1 gm/dl (2.5-4.0) L 10/24/23 12:33 Albumin/Globulin Ratio 2.0 (0.9-2) 10/24/23 12:33 Lipase 6 U/L (11-82) L 10/24/23 12:33 Urine Color Yellow 10/24/23 13:15 Urine Appearance Clear (Clear) 10/24/23 13:15 Urine pH 7.5 (4.5-7.5) 10/24/23 13:15 Ur Specific [place] 1.011 (1.000-1.030) 10/24/23 13:15 Urine Protein Negative (Negative) 10/24/23 13:15 Urine Glucose (UA) Negative (Negative) 10/24/23 13:15 Urine Ketones Negative (Negative) 10/24/23 13:15 Urine Blood Negative (Negative) 10/24/23 13:15 Urine Nitrite Negative (Negative) 10/24/23 13:15 Urine Bilirubin Negative (Negative) 10/24/23 13:15 Urine Urobilinogen Negative (Negative) 10/24/23 13:15 Ur Leukocyte Esterase Negative (Negative) 10/24/23 13:15 Carbamazepine 10.7 mcg/ml (4-12) 10/24/23 12:33 Blood Type A Negative 10/24/23 21:17 Antibody Screen NEGATIVE 10/24/23 21:17 Impressions Chest X-Ray 10/24/23 12:25 XR chest 1V portable HISTORY: fall COMPARISON: Chest 01/26/2019. FINDINGS: Slightly rotated study. No pneumothorax. No pleural effusions. The cardiac silhouette is normal in size. Old left clavicle fracture again noted. No acute fractures identified. The lungs are clear. IMPRESSION: No acute process. ACT 112: Negative or not required by law. Electronically signed by: Bradley Trevizo M.D. 10/24/2023 2:42 PM Hip/Pelvis X-Ray 10/24/23 12:25 XR hip LT 2V w pelvis CLINICAL HISTORY: Fall. COMPARISON: CT of the abdomen and pelvis June 20, 2023. FINDINGS: Postoperative findings within the spine are incidentally noted. Sacroiliac joints and symphysis pubis are intact. There is an acute moderately displaced significantly comminuted intertrochanteric fracture of the left femur. No additional acute fractures are present. IMPRESSION: Acute comminuted displaced intertrochanteric fracture of the left femur. ACT 112: Negative or not required by law. Electronically signed by: Mark Giang M.D. 10/24/2023 2:24 PM (1) Closed intertrochanteric fracture of left hip Encounter type: initial encounter Fracture alignment: displaced Qualified Code(s): S72.142A - Displaced intertrochanteric fracture of left femur, initial encounter for closed fracture
[2023-10-25] MEDS: SODIUM CHLOR 0.45% + 20MEQ KCL 20 MEQ/1,000 ML BAG IV SCH (10:03)
--- NOTE | 2023-10-25 11:27 | Hospitalist Progress Note ---
Date of Service October 25, 2023 Assessment & Plan (1) Closed intertrochanteric fracture of left hip: Plan: Mechanical fall at home while vaccuming Orthopedics consult: -Plan for Left Troch Nail Possible Plate with Dr. Velazquez 10/25 -SCDs for DVT prophylaxis at this time -Morphine for acute pain -Will need PT/OT after surgery, will be NWB Left leg -Maintenance fluids while n.p.o (2) Seizure disorder: Plan: Last seizure Aug 2020 per neurology documentation. -Well-controlled on carbamazepine ER 300 mg twice daily: Continue (3) Constipation: Plan: -Resume home linzess -Additional PRN medications for help with stool burden from pain medication Plan Dispo: conitnued inpatient stay with planned surgery today Admission and Anticipated Discharge Date Admission Date: October 24, 2023 Supervising Physician Co-Signing Physician Notes PA Supervision Note: I did not personally see or examine the patient today, but I verified all lilly points of EYAL Bond's assessment and plan with the following exceptions/additions: None Subjective Patient seen lying in bed, clearly in pain. Was just seen by Ortho, plan for OR around noon today. Reports mechanical fall while vacuuming, no prodrome. Relatively healthy, lives with her . Does not drive but that is due to choice as they do not have a car, she is eligible for limousine driver's license. States she has not had a seizure in over 4 years. Reports having issues with constipation and is on Linzess daily. Besides pain in left hip is feeling well, is anxious for surgery to fix the pain. Denies any chest pain or shortness of breath. Review of Systems Review of Systems: All systems reviewed & are unremarkable except as noted in Subjective Physical Exam Physical Exam: General: WN/WD, clearly in pain, VS as above Resp: normal respiratory effort, lungs clear to auscultation CV: RRR, no murmur, Abd: normal bowel sounds, non tender, no hepatosplenomegaly Extremities: tender to palpation over left hip. bilateral sensation in tact at toes, 2+ pulses Neuro: A&O x3, Skin: intact, no lesions noted Results & Data Results & Data Vital Signs (Past 12 Hours) Vital Signs Temp Pulse Resp BP Pulse Ox O2 Del Method O2 Flow Rate 10/25/23 07:19 36.8 C 83 16 137/77 93 Room Air 10/25/23 01:02 36.8 C 75 16 134/86 98 Nasal Cannula 2 Laboratory Results CBC reviewed Diagnostic Findings Hip/pelvic x-ray reviewed PG Care Time/CCT Total # of Minutes Spent Total Time Spent with Patient: Total time spent is greater than 50% in coordination of care (as documented) at patient's floor/unit and/or counseling patient: Coding Level of Care Code 81871 SUB INP/OBS CARE 2/35MIN Diagnoses Closed intertrochanteric fracture of left hip S72.142A Encounter type: initial encounter Fracture alignment: displaced Seizure disorder G40.909 Constipation K59.00 (1) Closed intertrochanteric fracture of left hip Encounter type: initial encounter Fracture alignment: displaced Qualified Code(s): S72.142A - Displaced intertrochanteric fracture of left femur, initial encounter for closed fracture
[2023-10-25] MEDS ORDERED: ROPIVACAINE 0.5% 5 MG/ML 30 ML VIAL ONE (11:43)
[2023-10-25] MEDS ORDERED: BUPIVACAINE 0.5 % 5 MG/1 ML PF 10ML VIAL ONE (11:43)
[2023-10-25] MEDS ORDERED: LIDOCAINE 2% 2 ML VIAL/AMP(20MG/ML) INFIL ONE (12:44)
[2023-10-25] MEDS ORDERED: PROPOFOL IV EMULSION 10 MG/ML 20 ML VIAL IV ONE (12:44)
[2023-10-25] MEDS ORDERED: ROCURONIUM BROMIDE 10 MG/ML 5 ML VIAL IV ONE ×2 (12:45→14:30)
[2023-10-25] MEDS ORDERED: ONDANSETRON INJ 2 MG/ML 2 ML VIAL ONE (12:45)
[2023-10-25] MEDS ORDERED: LACTATED RINGER'S 1,000 ML IV SCH (12:45)
[2023-10-25] MEDS ORDERED: HYDROmorphone INJ 2 MG/ML SYR/VIAL ONE ×2 (12:46→16:17)
[2023-10-25] MEDS ORDERED: ATROPINE SULFATE 0.1 MG/ML 10ML SYR IV PRN (12:57)
[2023-10-25] MEDS ORDERED: ePHEDrine sulfate 50 MG/ML AMP IV PRN (12:57)
[2023-10-25] MEDS ORDERED: fentaNYL citrate PF 100 MCG/2 ML VIAL IV PRN (12:57)
[2023-10-25] MEDS ORDERED: HYDROmorphone INJ 2 MG/ML SYR/VIAL IV PRN (12:57)
[2023-10-25] MEDS ORDERED: ONDANSETRON INJ 2 MG/ML 2 ML VIAL IV PRN (12:57)
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
[2023-10-25] MEDS ORDERED: BUPIVACAINE 0.5 % 5 MG/1 ML MPF 30ML VIAL ONE (13:04)
[2023-10-25] MEDS ORDERED: LIDOCAINE 1%/EPINEPHRINE 1:100,000 20 ML VIAL ONE (13:04)
[2023-10-25] MEDS ORDERED: DEXAMETHASONE SOD INJ 4 MG/ML VIAL ONE (14:26)
[2023-10-25] MEDS ORDERED: SUGAMMADEX SODIUM 200 MG/2 ML VIAL IV ONE (14:30)
[2023-10-25] MEDS ORDERED: fentaNYL citrate PF 100 MCG/2 ML VIAL ONE ×3 (15:11→16:14)
--- NOTE | 2023-10-25 15:52 | Post Operative Brief Note ---
Immediate Post Op Note v1 Date of Surgery October 25, 2023 Pre & Post Diagnosis Operation Date: 10/25/23 12:40 Pre-Op Diagnosis: Left hip fracture Post-Op Diagnosis: Left hip fracture I identified the patient and participated in the time-out.: Yes Procedure Operation Date: 10/25/23 12:40 Actual Procedures p Left Hip Open Reduction Internal Fixation(Left) - Jorge Velazquez MD Surgeon Jorge Velazquez MD Apprentice/Lineman Bettye Yousif MD & Woo Morris PA-C Estimated Blood Loss 175 Findings Consistent with Post-Op Diagnosis Fluids 1200 cc Anesthesia Type General Complications none
--- NOTE | 2023-10-25 15:54 | Operative Report ---
Post Operative Report Pre & Post Diagnosis Operation Date: 10/25/23 12:40 Pre-Op Diagnosis: Left hip fracture, displaced, comminuted 4-part intra-trochanteric Post-Op Diagnosis: Left hip fracture, displaced, comminuted 4-part intra-trochanteric I identified the patient and participated in the time-out.: Yes Procedure Operation Date: 10/25/23 12:40 Actual Procedures p Left Hip Open Reduction Internal Fixation(Left) - Jorge Velazquez MD Surgeon Jorge Velazquez MD Fabrication Department Supervisor A MD Benja & Woo Morris PA-C Estimated Blood Loss 175 Findings See Below Comminuted, displaced, 4 part Intra-trochanteric left hip fracture Fluids 1200 cc Specimens n/a Anesthesia Type General Complications none Indications The patient is a 73 year old female who sustained a left hip fracture from a ground level fall. The patients treatment options of conservative versus surgical intervention were discussed. Since the patient was an ambulatory prior to the injury and to avoid the risks of bed sores, pulmonary complications, and to give the best chance for ambulation, I recommended surgery. The patient understands the risks of surgery, which include but are not limited to: bleeding, infection, re-operation, damage to nerves and arteries, continued pain, failure of the hardware, mal-union, non-union, DVT, and . In addition the patient is aware of the 20-30% morbidity associated with hip fracture for up to 1 year following a hip fracture. The patient understands all of these instructions and explanations, all of their questions have been satisfactorily addressed. The patient has elected to proceed with surgery and the informed consent was signed. Description of Procedure IMPLANTS: 1) 12 mm Intermediate Troch nail (Synthes). 2) 12 x 95 mm helical screw. 3) 5 x 36 mm locking screw. Procedure: The patient was taken to the Operating Room and placed in the supine position on the fracture table after spinal anesthesia was administered. A multidisciplinary time-out was performed identifying my initials on the left lower limb as the correct and operative limb. Prior to the incision being made, 2 grams of intravenous Ancef were given. Fluoroscopy was brought in to ensure adequate x-rays images could be obtained. A reduction was performed with traction, adduction, and internal rotation of the operative limb, plus placing a crutch under the thigh. Once this was confirmed with Fluro, the left lower extremity was prepped in the standard fashion. The trochanter was marked as was the planned incision and trajectory of the helical screw. The incisions were injected with a 50:50 mixture of 1% Lidocaine plain and 0.5% Bupivacaine with epinephrine for a total of 17 cc. The planned incision proximal to the greater trochanter was made and carried down through the Tensor Fascia Karyna to expose the tip of the greater trochanter and the starting position. A starting guide wire was placed and the starting reamer was used to create the entry hole for the implant. A size 12 was selected. The implant was then inserted without difficulty. Small incisions were made for placement of the helical blade, derotation pins (anterior and posterior), and distal locking screw. These were placed through the aiming guide in the standard fashion. A hays was used to reduce the anterior cortex of the femoral neck, prior to placing the guide wire through the liberty and into femoral head and placing the derotation pin. The anterior pin looked like it would be very close to the cortex and the posterior pin was placed instead with good purchase. The Helical blade was placed and locked in place after removing the derotation pin, compressing the fracture, and releasing the traction. The distal locking screw was inserted in the standard fashion. Final x-rays were obtained showing TAD of less than 25mm. The wounds were copiously irrigated. The Tensor Fascia Karyna was closed with 0 Vicryl. The subcutaneous tissue was closed with 3-0 Vicryl. The skin was closed with debi. The incisions were covered with Xeroform, 4x4s, ABD, and foam tape. The patient was transfer to her hospital bed and taken to the PACU in stable condition. The sponge and needle counts were correct. Post-op Instructions: The patient was admitted back to Med/Surg. The patient will be WBAT with a walker. The patient will be seen by PT/OT. Labs will be checked in the am. DVT prophylaxis will be with TEDs, mechanical devices and ASA 81 mg PO BID will be started. I attest to the content of the Intraoperative Record and any orders documented therein. Any exceptions are noted below.
[2023-10-25] MEDS ORDERED: NALOXONE HCL 0.4 MG/1 ML VIAL/CARP ONE (16:23)
--- NOTE | 2023-10-25 16:25 | Fluoroscopy Report ---
FL femur LT 2V CLINICAL HISTORY: LEFT TROCH NAIL POSSIBLE PLATES COMPARISON STUDY: Pelvis and left hip radiographs October 24, 2023. FLUOROSCOPY TIME: 161.4 seconds. Ka, r: 51.19 mGy FLUOROSCOPIC IMAGES: 4 FINDINGS: Fluoroscopy was provided during open reduction and internal fixation of the intertrochanter ic fracture of the left femur with trochanteric nail. Fracture alignment has markedly improved. Hardw are is intact. No unexpected radiopaque foreign bodies. IMPRESSION: Fluoroscopy provided during open reduction and internal fixation of the intertrochanteri c fracture of the left femur. ACT 112: Negative or not required by law. Electronically signed by: Mark Giang M.D. 10/25/2023 4:24 PM
[2023-10-25] MEDS ORDERED: DexMEDEtomidine HCL IV 100 MCG/ML VIAL IV ONE (16:39)
--- NOTE | 2023-10-25 16:41 | Operative Report ---
Post Operative Report Pre & Post Diagnosis Operation Date: 10/25/23 12:40 Pre-Op Diagnosis: Left hip fracture Post-Op Diagnosis: Left hip fracture I identified the patient and participated in the time-out.: Yes Procedure Operation Date: 10/25/23 12:40 Actual Procedures p Left Hip Open Reduction Internal Fixation(Left) - Jorge Velazquez MD Surgeon Jorge Velazquez MD Landfill Grader Bettye Yousif MD & Woo Morris PA-C Estimated Blood Loss 175 Findings Consistent with Post-Op Diagnosis Same as postoperative diagnosis. Specimens None Description of Procedure Please see detailed operative note. I attest to the content of the Intraoperative Record and any orders documented therein. Any exceptions are noted below.
--- NOTE | 2023-10-25 17:12 | Anesthesiology Progress Note ---
Date of Service October 25, 2023 Anesthesia Post Procedure Vital Signs Vital Signs: Temp Pulse Pulse Pulse Resp BP BP 10/25/23 16:55 111 H 16 147/82 H 10/25/23 16:45 97 H 16 161/86 H 10/25/23 16:38 37.0 C 101 H 17 167/77 H 10/25/23 12:34 37.1 C 22 142/88 H 10/25/23 07:19 36.8 C 83 16 137/77 10/25/23 01:02 36.8 C 75 16 134/86 10/24/23 21:19 10/24/23 20:55 36.8 C 75 14 121/73 10/24/23 20:27 10/24/23 20:00 75 18 10/24/23 20:00 128/62 10/24/23 20:00 128/62 10/24/23 19:50 74 13 10/24/23 19:42 37.1 C 10/24/23 19:40 74 18 10/24/23 19:30 72 13 10/24/23 19:30 118/82 10/24/23 19:20 73 16 10/24/23 19:10 76 13 10/24/23 19:00 127/70 10/24/23 19:00 74 13 10/24/23 18:50 73 19 10/24/23 18:40 72 13 10/24/23 18:30 72 13 10/24/23 18:30 128/80 10/24/23 18:30 128/80 10/24/23 18:20 75 14 10/24/23 18:10 73 9 L 10/24/23 18:00 73 12 10/24/23 18:00 110/75 10/24/23 18:00 110/75 10/24/23 17:50 75 13 10/24/23 17:40 72 14 10/24/23 17:30 130/67 10/24/23 17:30 80 13 10/24/23 17:22 73 10/24/23 17:20 72 12 Pulse Ox O2 Del Method O2 Flow Rate 10/25/23 16:55 95 Nasal Cannula 4 10/25/23 16:45 94 Nasal Cannula 4 10/25/23 16:38 93 Nasal Cannula 4 10/25/23 12:34 93 Room Air 10/25/23 07:19 93 Room Air 10/25/23 01:02 98 Nasal Cannula 2 10/24/23 21:19 Nasal Cannula 2 10/24/23 20:55 98 Room Air 10/24/23 20:27 Nasal Cannula 2 10/24/23 20:00 98 Room Air 10/24/23 20:00 10/24/23 20:00 10/24/23 19:50 98 10/24/23 19:42 10/24/23 19:40 99 Nasal Cannula 2 10/24/23 19:30 98 10/24/23 19:30 10/24/23 19:20 99 10/24/23 19:10 97 10/24/23 19:00 10/24/23 19:00 97 10/24/23 18:50 97 10/24/23 18:40 97 10/24/23 18:30 94 10/24/23 18:30 10/24/23 18:30 10/24/23 18:20 93 10/24/23 18:10 98 10/24/23 18:00 97 10/24/23 18:00 10/24/23 18:00 10/24/23 17:50 96 10/24/23 17:40 96 10/24/23 17:30 10/24/23 17:30 98 10/24/23 17:22 10/24/23 17:20 98 Pain Intensity Left Hip: Pain Intensity: 9 Transfer of Care Handoff Completed per policy Notes Mental Status: alert / awake / arousable Patient Amnestic to Procedure: Yes Nausea / Vomiting: adequately controlled Pain: adequately controlled Airway Patency, RR, SpO2: stable & adequate BP & HR: stable & adequate Hydration State: stable & adequate Anesthetic Complications: no major complications apparent and Pt Satisfied with anesthetic care
[2023-10-25] MEDS ORDERED: SOD PHOSPHATE/SOD BIPHOSPHATE ENEMA 132 ML BTL PR PRN (17:33)
[2023-10-25] MEDS: linaCLOtide 72 MCG CAPSULE PO SCH (18:25)
[2023-10-25] MEDS: ACETAMINOPHEN 500 MG TAB PO SCH ×2 (18:25→23:12)
[2023-10-25] MEDS: CHECK SCOPOLAMINE PATCH PLACEMENT SCH ×2 (18:26→18:45)
[2023-10-25] MEDS: ceFAZolin 2000MG 2,000 MG/15 ML SYR IV SCH (21:41)
[2023-10-26] MEDS: ceFAZolin 2000MG 2,000 MG/15 ML SYR IV SCH (05:30)
[2023-10-26] MEDS: ACETAMINOPHEN 500 MG TAB PO SCH ×3 (05:30→22:06)
[2023-10-26] MEDS: CHECK SCOPOLAMINE PATCH PLACEMENT SCH ×3 (05:30→15:14)
--- NOTE | 2023-10-26 05:49 | Electrocardiogram Report ---
Test Reason : Blood Pressure : / mmHG Vent. Rate : 063 BPM Atrial Rate : 063 BPM P-R Int : 178 ms QRS Dur : 086 ms QT Int : 454 ms P-R-T Axes : 065 052 075 degrees QTc Int : 464 ms Normal sinus rhythm Possible Lateral infarct (cited on or before 04-JUL-2018) Abnormal ECG When compared with ECG of 26-JAN-2019 06:58, No significant change was found Confirmed by Rahat Aguiar ([id number]) on 10/26/2023 5:49:30 AM Referred By: Confirmed By:Rahat Aguiar
[2023-10-26 07:52] LABS: Hematocrit (blood only) 31.6 % (37.0-47.0); Hemoglobin 10.9 g/dl (12.0-16.0); Mean Corpuscular Hemoglobin 33.9 pg (25.0-34.0); Mean Corpuscular Hgb Conc 34.5 g/dL (32.0-36.0); Mean Corpuscular Volume 98.1 fL (80.0-100.0); Mean Platelet Volume 9.1 fL (9.4-12.4); Platelet Count 260 K/uL (130-400); RDW Coefficient of Variation 11.8 % (11.5-14.5); RDW Standard Deviation 42.5 fL (36.4-46.3); Red Blood Count 3.22 M/uL (4.20-5.40); White Blood Count 8.15 K/ul (4.8-10.8)
[2023-10-26 08:16] LABS: BUN Creatinine Ratio 11.1 (10-20); Calcium 7.9 mg/dl (8.6-10.3); Est GFR (Non-African American) 83.7 ml/min; Magnesium 2.3 mg/dl (1.7-2.4); Potassium 4.3 mmol/L (3.5-5.1)
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
--- NOTE | 2023-10-26 09:13 | Orthopedic Progress Note ---
Date of Service October 26, 2023 Assessment & Plan (1) Closed intertrochanteric fracture of left hip: Plan: POD #1 s/p ORIF L hip fracture, doing as well as expected. Resume diet. WBAT with walker. OOB to chair. Continue pain control. DVT prophylaxis: TEDs 3 weeks, SCD while in hospital, ASA 81 mg BID for 6 weeks. PT/OT. D/C planning. Continue care per primary service. Admission and Anticipated Discharge Date Admission Date: October 24, 2023 Subjective Doing well, very pleased following surgery Physical Exam Physical Exam: LLE: Neurovascularly unchanged. Calfs soft, non-tender. Dressing clean, dry, intact. Minimal swelling thigh. Results & Data Vital Signs (Past 12 Hours) Vital Signs Temp Pulse Resp BP Pulse Ox O2 Del Method O2 Flow Rate 10/26/23 07:17 36.8 C 87 16 154/62 H 97 Room Air 10/26/23 03:04 36.7 C 87 18 127/65 96 Room Air 10/25/23 23:34 36.7 C 87 18 127/63 99 Nasal Cannula 2 Diagnostic Findings Laboratory Results WBC 8.15 K/ul (4.8-10.8) 10/26/23 07:12 RBC 3.22 M/uL (4.20-5.40) L 10/26/23 07:12 Hgb 10.9 g/dl (12.0-16.0) L 10/26/23 07:12 Hct 31.6 % (37.0-47.0) L 10/26/23 07:12 MCV 98.1 fL (80.0-100.0) 10/26/23 07:12 MCH 33.9 pg (25.0-34.0) 10/26/23 07:12 MCHC 34.5 g/dL (32.0-36.0) 10/26/23 07:12 RDW Std Deviation 42.5 fL (36.4-46.3) 10/26/23 07:12 RDW Coeff of Gustavo 11.8 % (11.5-14.5) 10/26/23 07:12 Plt Count 260 K/uL (130-400) 10/26/23 07:12 MPV 9.1 fL (9.4-12.4) L 10/26/23 07:12 Immature Gran % (Auto) 0.4 % 10/25/23 07:01 Neut % (Auto) 57.3 % 10/25/23 07:01 Lymph % (Auto) 21.1 % 10/25/23 07:01 [place] % (Auto) 19.7 % 10/25/23 07:01 Eos % (Auto) 1.1 % 10/25/23 07:01 Baso % (Auto) 0.4 % 10/25/23 07:01 Neut # (Auto) 3.20 K/uL (1.40-6.50) 10/25/23 07:01 Lymph # (Auto) 1.18 K/uL (1.20-3.40) L 10/25/23 07:01 [place] # (Auto) 1.10 K/uL (0.11-0.59) H 10/25/23 07:01 Eos # (Auto) 0.06 K/uL (0.00-0.50) 10/25/23 07:01 Baso # (Auto) 0.02 K/uL (0.00-0.20) 10/25/23 07:01 Immature Gran # (Auto) 0.02 K/uL (0.01-0.20) 10/25/23 07:01 PT 10.3 Seconds (9.0-12.0) 10/24/23 12:33 INR 0.9 (0.9-1.1) 10/24/23 12:33 APTT 27 Seconds (21-31) 10/24/23 12:33 PTT Ratio 1.0 10/24/23 12:33 Sodium 132 mmol/L (136-145) L 10/26/23 07:12 Potassium 4.3 mmol/L (3.5-5.1) 10/26/23 07:12 Chloride 102 mmol/L (98-107) 10/26/23 07:12 Carbon Dioxide 26 mmol/L (21-32) 10/26/23 07:12 Anion Gap 4 (3-11) 10/26/23 07:12 BUN 8 mg/dl (6-23) 10/26/23 07:12 Creatinine 0.72 mg/dl (0.6-1.2) 10/26/23 07:12 Est Cr Clr Drug Dosing 80.0 ml/min 10/26/23 07:12 Est GFR ( Amer) 97.0 ml/min 10/26/23 07:12 Est GFR (Non-Af Amer) 83.7 ml/min 10/26/23 07:12 BUN/Creatinine Ratio 11.1 (10-20) 10/26/23 07:12 Glucose 117 mg/dl (70-99(Fasting)) H 10/26/23 07:12 Calcium 7.9 mg/dl (8.6-10.3) L 10/26/23 07:12 Magnesium 2.3 mg/dl (1.7-2.4) 10/26/23 07:12 Total Bilirubin 0.3 mg/dl (0.2-1.0) 10/24/23 12:33 AST 19 U/L (13-39) 10/24/23 12:33 ALT 15 U/L (7-52) 10/24/23 12:33 Alkaline Phosphatase 52 U/L (34-104) 10/24/23 12:33 Troponin I High Sens 7.5 pg/ml (0-14) 10/24/23 12:33 Total Protein 6.2 gm/dl (6.0-8.3) 10/24/23 12:33 Albumin 4.1 gm/dl (3.4-5.0) 10/24/23 12:33 Globulin 2.1 gm/dl (2.5-4.0) L 10/24/23 12:33 Albumin/Globulin Ratio 2.0 (0.9-2) 10/24/23 12:33 Lipase 6 U/L (11-82) L 10/24/23 12:33 25-OH Vitamin D Total Cancelled 10/26/23 07:12 Urine Color Yellow 10/24/23 13:15 Urine Appearance Clear (Clear) 10/24/23 13:15 Urine pH 7.5 (4.5-7.5) 10/24/23 13:15 Ur Specific [place] 1.011 (1.000-1.030) 10/24/23 13:15 Urine Protein Negative (Negative) 10/24/23 13:15 Urine Glucose (UA) Negative (Negative) 10/24/23 13:15 Urine Ketones Negative (Negative) 10/24/23 13:15 Urine Blood Negative (Negative) 10/24/23 13:15 Urine Nitrite Negative (Negative) 10/24/23 13:15 Urine Bilirubin Negative (Negative) 10/24/23 13:15 Urine Urobilinogen Negative (Negative) 10/24/23 13:15 Ur Leukocyte Esterase Negative (Negative) 10/24/23 13:15 Carbamazepine 10.7 mcg/ml (4-12) 10/24/23 12:33 Blood Type A Negative 10/24/23 21:17 Antibody Screen NEGATIVE 10/24/23 21:17 Impressions Chest X-Ray 10/24/23 12:25 XR chest 1V portable HISTORY: fall COMPARISON: Chest 01/26/2019. FINDINGS: Slightly rotated study. No pneumothorax. No pleural effusions. The cardiac silhouette is normal in size. Old left clavicle fracture again noted. No acute fractures identified. The lungs are clear. IMPRESSION: No acute process. ACT 112: Negative or not required by law. Electronically signed by: Bradley Trevizo M.D. 10/24/2023 2:42 PM Hip/Pelvis X-Ray 10/24/23 12:25 XR hip LT 2V w pelvis CLINICAL HISTORY: Fall. COMPARISON: CT of the abdomen and pelvis June 20, 2023. FINDINGS: Postoperative findings within the spine are incidentally noted. Sacroiliac joints and symphysis pubis are intact. There is an acute moderately displaced significantly comminuted intertrochanteric fracture of the left femur. No additional acute fractures are present. IMPRESSION: Acute comminuted displaced intertrochanteric fracture of the left femur. ACT 112: Negative or not required by law. Electronically signed by: Mark Giang M.D. 10/24/2023 2:24 PM Femur X-Ray 10/25/23 00:00 FL femur LT 2V CLINICAL HISTORY: LEFT TROCH NAIL POSSIBLE PLATES COMPARISON STUDY: Pelvis and left hip radiographs October 24, 2023. FLUOROSCOPY TIME: 161.4 seconds. Ka, r: 51.19 mGy FLUOROSCOPIC IMAGES: 4 FINDINGS: Fluoroscopy was provided during open reduction and internal fixation of the intertrochanteric fracture of the left femur with trochanteric nail. Fracture alignment has markedly improved. Hardware is intact. No unexpected radiopaque foreign bodies. IMPRESSION: Fluoroscopy provided during open reduction and internal fixation of the intertrochanteric fracture of the left femur. ACT 112: Negative or not required by law. Electronically signed by: Mark Giang M.D. 10/25/2023 4:24 PM (1) Closed intertrochanteric fracture of left hip Encounter type: initial encounter Fracture alignment: displaced Qualified Code(s): S72.142A - Displaced intertrochanteric fracture of left femur, initial encounter for closed fracture
[2023-10-26] MEDS: ASPIRIN 81 MG ECTAB PO SCH ×2 (09:26→20:10)
[2023-10-26] MEDS: carBAMazepine XR 100 MG TABCR PO SCH ×2 (09:26→20:10)
[2023-10-26] MEDS: linaCLOtide 72 MCG CAPSULE PO SCH (09:26)
[2023-10-26] MEDS: oxyCODONE HCL IR 5 MG TAB (IMMEDIATE RELEASE) PO PRN (09:31)
[2023-10-26] MEDS: GABAPENTIN 100 MG CAP PO SCH ×3 (09:41→20:10)
[2023-10-26] MEDS: CYCLOBENZAPRINE HCL 10 MG TAB PO SCH (20:09)
[2023-10-27] MEDS: CHECK SCOPOLAMINE PATCH PLACEMENT SCH ×4 (01:09→23:27)
[2023-10-27] MEDS: ACETAMINOPHEN 500 MG TAB PO SCH ×3 (06:10→20:29)
--- NOTE | 2023-10-27 07:39 | Orthopedic Progress Note ---
Date of Service October 27, 2023 Assessment & Plan (1) Closed intertrochanteric fracture of left hip: Plan: POD #2 s/p ORIF L hip fracture, doing as well as expected. Resume diet. WBAT with walker. OOB to chair. Continue pain control. Dressing changed 10/27/23. DVT prophylaxis: TEDs 3 weeks, SCD while in hospital, due to history of DVT will switch to Lovenox 30 mg sq for 4 weeks and then start ASA 81 mg BID for 2 weeks. Continue PT/OT, both recommending outpatient rehab. D/C planning for outpatient rehab. Continue care per primary service. Admission and Anticipated Discharge Date Admission Date: October 24, 2023 Subjective Doing well, no complaints Physical Exam Physical Exam: LLE: Neurovascularly unchanged. Calfs soft, non-tender. Incisions clean, dry, intact, minimal old dried blood on dressing. Minimal swelling thigh. Results & Data Vital Signs (Past 12 Hours) Vital Signs Temp Pulse Resp BP Pulse Ox O2 Del Method 10/26/23 19:53 36.5 C 81 16 149/75 H 97 Room Air Laboratory Results 10/26/23 10/26/23 Range/Units 07:57 07:12 WBC 8.15 (4.8-10.8) K/ul RBC 3.22 L (4.20-5.40) M/uL Hgb 10.9 L (12.0-16.0) g/dl Hct 31.6 L (37.0-47.0) % MCV 98.1 (80.0-100.0) fL MCH 33.9 (25.0-34.0) pg MCHC 34.5 (32.0-36.0) g/dL RDW Std Deviation 42.5 (36.4-46.3) fL RDW Coeff of Gustavo 11.8 (11.5-14.5) % Plt Count 260 (130-400) K/uL MPV 9.1 L (9.4-12.4) fL Sodium 132 L (136-145) mmol/L Potassium 4.3 (3.5-5.1) mmol/L Chloride 102 (98-107) mmol/L Carbon Dioxide 26 (21-32) mmol/L Anion Gap 4 (3-11) BUN 8 (6-23) mg/dl Creatinine 0.72 (0.6-1.2) mg/dl Est Cr Clr Drug Dosing 80.0 ml/min Est GFR ( Amer) 97.0 ml/min Est GFR (Non-Af Amer) 83.7 ml/min BUN/Creatinine Ratio 11.1 (10-20) Glucose 117 H (70-99(Fasting)) mg/dl Calcium 7.9 L (8.6-10.3) mg/dl Magnesium 2.3 (1.7-2.4) mg/dl 25-OH Vitamin D Total 57.6 Cancelled (1) Closed intertrochanteric fracture of left hip Encounter type: initial encounter Fracture alignment: displaced Qualified Code(s): S72.142A - Displaced intertrochanteric fracture of left femur, initial encounter for closed fracture
[2023-10-27] MEDS: linaCLOtide 72 MCG CAPSULE PO SCH (07:58)
[2023-10-27 08:48] LABS: Basophils # (auto) 0.03 K/uL (0.00-0.20); Basophils % (auto) 0.4 %; Eosinophils # (auto) 0.06 K/uL (0.00-0.50); Eosinophils % (auto) 0.8 %; Hematocrit (blood only) 29.2 % (37.0-47.0); Hemoglobin 10.3 g/dl (12.0-16.0); Immature Granulocytes # (auto) 0.03 K/uL (0.01-0.20); Immature Granulocytes % (auto) 0.4 %; Lymphocytes # (auto) 0.81 K/uL (1.20-3.40); Lymphocytes % (auto) 10.8 %; Mean Corpuscular Hemoglobin 34.1 pg (25.0-34.0); Mean Corpuscular Hgb Conc 35.3 g/dL (32.0-36.0); Mean Corpuscular Volume 96.7 fL (80.0-100.0); Mean Platelet Volume 9.4 fL (9.4-12.4); Monocytes # (auto) 0.88 K/uL (0.11-0.59); Monocytes % (auto) 11.7 %; Neutrophils # (auto) 5.72 K/uL (1.40-6.50); Neutrophils % (auto) 75.9 %; Platelet Count 263 K/uL (130-400); RDW Coefficient of Variation 11.9 % (11.5-14.5); RDW Standard Deviation 42.2 fL (36.4-46.3); Red Blood Count 3.02 M/uL (4.20-5.40); White Blood Count 7.53 K/ul (4.8-10.8)
[2023-10-27 08:51] LABS: BUN Creatinine Ratio 14.5 (10-20); Calcium 8.1 mg/dl (8.6-10.3); Creatinine Clr Calc Pharmacy 92.8 ml/min; Est GFR (African American) 104.4 ml/min; Est GFR (Non-African American) 90.1 ml/min; Potassium 3.4 mmol/L (3.5-5.1)
[2023-10-27] MEDS: carBAMazepine XR 100 MG TABCR PO SCH ×2 (09:20→20:29)
[2023-10-27] MEDS: GABAPENTIN 100 MG CAP PO SCH ×3 (09:20→20:29)
[2023-10-27] MEDS: ENOXAPARIN INJ 30 MG/0.3 ML SYR SQ SCH ×2 (09:30→20:29)
[2023-10-27] MEDS: POLYETHYLENE (MIRALAX) 17 GM PACK PO SCH ×2 (11:26→20:29)
--- NOTE | 2023-10-27 15:09 | Hospitalist Progress Note ---
Date of Service October 27, 2023 Assessment & Plan (1) Closed intertrochanteric fracture of left hip: Plan: Suffered an mechanical fall at home. Status post open reduction internal fixation, postoperative day #2. Orthopedic consultation and recommendations appreciated. She will be on Lovenox daily for the next 4 weeks then aspirin 81 mg twice a day for 2 weeks after that. OT and PT both recommend inpatient rehab at discharge. (2) Seizure disorder: Plan: Stable. Continue current management (3) Constipation: Plan: Aggravated by opioid therapy. Continue Linzess. Add MiraLAX scheduled dosing twice daily. (4) Hyponatremia: Plan: Mild. No intervention needed at this time. Serial lab (5) Peripheral neuropathy: Plan: Stable. 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 Continue current medical management. Supportive care Plan Both OT and PT recommend inpatient rehab at discharge. Case management aware. She is medically stable for discharge at this time. Admission and Anticipated Discharge Date Admission Date: October 24, 2023 Subjective Alert and oriented. is at the bedside. She has chronic constipation which has been aggravated by opioid therapy. MiraLAX twice daily dosing has been ordered. OT and PT both recommend inpatient rehab. Currently postoperative day #2. Appreciate orthopedic consultation and recommendations. She will remain on Lovenox daily for the next 4 weeks then switch over to aspirin 81 mg twice daily for 2 more weeks after that going forward. Oxygen saturation on room air is excellent. Review of Systems 2 Review of Systems: Constitutional-no fever or chills ENT-no blurred vision, no double vision, no epistaxis, no sore throat Respiratory-no cough, no wheezing, no shortness of breath Cardiac-no palpitations, no chest pain, no syncope GI-no nausea, vomiting, diarrhea, melena, hematochezia. She is constipated -no urinary retention, no urinary incontinence, no dysuria, no hematuria Musculoskeletal-mild postoperative left hip pain is expected. No muscle tenderness Skin-no bruising, no rashes, no pruritus Neuro-no isolated weakness, no paresthesia Psych-no depression, no anxiety Physical Exam 2 Physical Exam: General-alert and oriented x3, no fever, no chills HEENT-head atraumatic and normocephalic, pupils equal and reactive to light, extraocular muscles intact Neck-no lymphadenopathy or thyromegaly, trachea midline Chest-clear to auscultation percussion. No rales, wheezing or rhonchi Cardiac-regular rate and rhythm, normal S1 and S2 Abdomen-normal bowel sounds, nontender, no hepatosplenomegaly Extremities-no cyanosis, clubbing, or edema. Left hip surgical site healing uneventfully Neuro-cranial nerves II through XII intact, motor and sensory function within normal limits, strength symmetrical, no focal deficits Psych-she appears to be somewhat manic Results & Data Results & Data Vital Signs (Past 12 Hours) Vital Signs Temp Pulse Resp BP BP Pulse Ox O2 Del Method 10/27/23 13:52 36.8 C 88 18 156/75 H 98 Room Air 10/27/23 08:20 36.5 C 82 18 131/71 93 Room Air Laboratory Results 10/27/23 07:51 10/27/23 07:51 PG Care Time/CCT Total # of Minutes Spent Total Time Spent with Patient: Total time spent is greater than 50% in coordination of care (as documented) at patient's floor/unit and/or counseling patient: Coding Level of Care Code 87926 SUB INP/OBS CARE 3/50MIN Diagnoses Closed intertrochanteric fracture of left hip S72.142A Encounter type: initial encounter Fracture alignment: displaced Seizure disorder G40.909 Constipation K59.00 Hyponatremia E87.1 Peripheral neuropathy G62.9 Manic depression F31.9 (1) Closed intertrochanteric fracture of left hip Encounter type: initial encounter Fracture alignment: displaced Qualified Code(s): S72.142A - Displaced intertrochanteric fracture of left femur, initial encounter for closed fracture
[2023-10-27] MEDS: CYCLOBENZAPRINE HCL 10 MG TAB PO SCH (20:29)
[2023-10-27] MEDS ORDERED: COUGH DROP (SUGAR FREE) LOZ 24 LOZ/1 BOX BUCCAL PRN (21:31)
[2023-10-28] MEDS: ACETAMINOPHEN 500 MG TAB PO SCH ×3 (05:40→22:01)
[2023-10-28 06:27] LABS: Basophils # (auto) 0.04 K/uL (0.00-0.20); Basophils % (auto) 0.6 %; Eosinophils # (auto) 0.22 K/uL (0.00-0.50); Eosinophils % (auto) 3.2 %; Hemoglobin 9.8 g/dl (12.0-16.0); Immature Granulocytes # (auto) 0.04 K/uL (0.01-0.20); Immature Granulocytes % (auto) 0.6 %; Lymphocytes # (auto) 1.13 K/uL (1.20-3.40); Lymphocytes % (auto) 16.2 %; Mean Corpuscular Hemoglobin 33.4 pg (25.0-34.0); Mean Corpuscular Hgb Conc 33.8 g/dL (32.0-36.0); Mean Platelet Volume 9.2 fL (9.4-12.4); Monocytes # (auto) 0.92 K/uL (0.11-0.59); Monocytes % (auto) 13.2 %; Neutrophils # (auto) 4.63 K/uL (1.40-6.50); Neutrophils % (auto) 66.2 %; Platelet Count 299 K/uL (130-400); RDW Coefficient of Variation 11.9 % (11.5-14.5); RDW Standard Deviation 43.6 fL (36.4-46.3); Red Blood Count 2.93 M/uL (4.20-5.40); White Blood Count 6.98 K/ul (4.8-10.8)
[2023-10-28 06:32] LABS: BUN Creatinine Ratio 15.3 (10-20); Calcium 8.4 mg/dl (8.6-10.3); Creatinine Clr Calc Pharmacy 97.6 ml/min; Est GFR (African American) 106.1 ml/min; Est GFR (Non-African American) 91.6 ml/min; Potassium 3.8 mmol/L (3.5-5.1)
[2023-10-28] MEDS: linaCLOtide 72 MCG CAPSULE PO SCH (07:55)
[2023-10-28 07:57] VITALS: RESP 16
[2023-10-28] MEDS: POLYETHYLENE (MIRALAX) 17 GM PACK PO SCH ×2 (09:03→20:19)
[2023-10-28] MEDS: ENOXAPARIN INJ 30 MG/0.3 ML SYR SQ SCH ×2 (09:03→20:18)
[2023-10-28] MEDS: carBAMazepine XR 100 MG TABCR PO SCH ×2 (09:03→22:01)
[2023-10-28] MEDS: GABAPENTIN 100 MG CAP PO SCH ×3 (09:04→20:18)
[2023-10-28] MEDS: oxyCODONE HCL IR 5 MG TAB (IMMEDIATE RELEASE) PO PRN ×2 (10:05→19:09)
--- NOTE | 2023-10-28 10:55 | Orthopedic Progress Note ---
Date of Service October 28, 2023 Assessment & Plan (1) Closed intertrochanteric fracture of left hip: Plan: POD #3 s/p ORIF L hip fracture, doing as well as expected. Resume diet. WBAT with walker. OOB to chair. Continue pain control. Dressing changed 10/27/23, keep covered while in hospital and change as needed. DVT prophylaxis: TEDs 3 weeks, SCD while in hospital, due to history of DVT switched to Lovenox 30 mg sq for 4 weeks and then start ASA 81 mg BID for 2 weeks. Continue PT/OT, both recommending outpatient rehab. D/C Mckenzie. D/C planning for outpatient rehab. Continue care per primary service. Ok for discharge from ortho standpoint. Admission and Anticipated Discharge Date Admission Date: October 24, 2023 Subjective Feeling better. Went to bathroom. +BM. Physical Exam Physical Exam: LLE: Neurovascularly unchanged. Calfs soft, non-tender. Dressing clean, dry, intact. Minimal swelling thigh. Results & Data Vital Signs (Past 12 Hours) Vital Signs Temp Pulse Resp BP Pulse Ox O2 Del Method 10/28/23 07:56 36.7 C 78 16 144/75 H 93 Room Air Laboratory Results 10/28/23 Range/Units 05:37 WBC 6.98 (4.8-10.8) K/ul RBC 2.93 L (4.20-5.40) M/uL Hgb 9.8 L (12.0-16.0) g/dl Hct 29.0 L (37.0-47.0) % MCV 99.0 (80.0-100.0) fL MCH 33.4 (25.0-34.0) pg MCHC 33.8 (32.0-36.0) g/dL RDW Std Deviation 43.6 (36.4-46.3) fL RDW Coeff of Gustavo 11.9 (11.5-14.5) % Plt Count 299 (130-400) K/uL MPV 9.2 L (9.4-12.4) fL Immature Gran % (Auto) 0.6 % Neut % (Auto) 66.2 % Lymph % (Auto) 16.2 % [place] % (Auto) 13.2 % Eos % (Auto) 3.2 % Baso % (Auto) 0.6 % Neut # (Auto) 4.63 (1.40-6.50) K/uL Lymph # (Auto) 1.13 L (1.20-3.40) K/uL [place] # (Auto) 0.92 H (0.11-0.59) K/uL Eos # (Auto) 0.22 (0.00-0.50) K/uL Baso # (Auto) 0.04 (0.00-0.20) K/uL Immature Gran # (Auto) 0.04 (0.01-0.20) K/uL Sodium 135 L (136-145) mmol/L Potassium 3.8 (3.5-5.1) mmol/L Chloride 103 (98-107) mmol/L Carbon Dioxide 26 (21-32) mmol/L Anion Gap 6 (3-11) BUN 9 (6-23) mg/dl Creatinine 0.59 L (0.6-1.2) mg/dl Est Cr Clr Drug Dosing 97.6 ml/min Est GFR ( Amer) 106.1 ml/min Est GFR (Non-Af Amer) 91.6 ml/min BUN/Creatinine Ratio 15.3 (10-20) Glucose 106 H (70-99(Fasting)) mg/dl Calcium 8.4 L (8.6-10.3) mg/dl (1) Closed intertrochanteric fracture of left hip Encounter type: initial encounter Fracture alignment: displaced Qualified Code(s): S72.142A - Displaced intertrochanteric fracture of left femur, initial encounter for closed fracture
--- NOTE | 2023-10-28 14:22 | Hospitalist Progress Note ---
Date of Service October 28, 2023 Assessment & Plan (1) Closed intertrochanteric fracture of left hip: Plan: Suffered an mechanical fall at home. Status post open reduction internal fixation, postoperative day #3. Orthopedic consultation and recommendations appreciated. She will be on Lovenox daily for the next 4 weeks then aspirin 81 mg twice a day for 2 weeks after that. OT and PT both recommend inpatient rehab at discharge. (2) Seizure disorder: Plan: Stable. Continue current management (3) Constipation: Plan: Aggravated by opioid therapy. Continue Linzess. Addition of MiraLAX has helped quite a bit. (4) Hyponatremia: Plan: Mild. No intervention needed at this time. Serial lab (5) Peripheral neuropathy: Plan: Stable. 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 Continue current medical management. Supportive care Plan Both OT and PT recommend inpatient rehab at discharge. Case management aware. She is medically stable for discharge at this time. Final arrangements pending Admission and Anticipated Discharge Date Admission Date: October 24, 2023 Subjective Alert and oriented. No new problems. She has had bowel movements with addition of MiraLAX. Hemoglobin has drifted down to 9.8 but transfusion at this time is not necessary. Orthopedic entry noted. Postoperative day #3. Rehab placement pending Review of Systems Review of Systems: Constitutional-no fever or chills ENT-no blurred vision, no double vision, no epistaxis, no sore throat Respiratory-no cough, no wheezing, no shortness of breath Cardiac-no palpitations, no chest pain, no syncope GI-no nausea, vomiting, diarrhea, melena, hematochezia. She is constipated -no urinary retention, no urinary incontinence, no dysuria, no hematuria Musculoskeletal-mild postoperative left hip pain is expected. No muscle tenderness Skin-no bruising, no rashes, no pruritus Neuro-no isolated weakness, no paresthesia Psych-no depression, no anxiety Physical Exam Physical Exam: General-alert and oriented x3, no fever, no chills HEENT-head atraumatic and normocephalic, pupils equal and reactive to light, extraocular muscles intact Neck-no lymphadenopathy or thyromegaly, trachea midline Chest-clear to auscultation percussion. No rales, wheezing or rhonchi Cardiac-regular rate and rhythm, normal S1 and S2 Abdomen-normal bowel sounds, nontender, no hepatosplenomegaly Extremities-no cyanosis, clubbing, or edema. Left hip surgical site healing uneventfully Neuro-cranial nerves II through XII intact, motor and sensory function within normal limits, strength symmetrical, no focal deficits Psych-she appears to be somewhat manic Results & Data Results & Data Vital Signs (Past 12 Hours) Vital Signs Temp Pulse Resp BP Pulse Ox O2 Del Method 10/28/23 14:00 36.8 C 84 16 135/71 96 Room Air 10/28/23 07:56 36.7 C 78 16 144/75 H 93 Room Air PG Care Time/CCT Total # of Minutes Spent Total Time Spent with Patient: Total time spent is greater than 50% in coordination of care (as documented) at patient's floor/unit and/or counseling patient: Coding Level of Care Code 55273 SUB INP/OBS CARE 2/35MIN Diagnoses Closed intertrochanteric fracture of left hip S72.142A Encounter type: initial encounter Fracture alignment: displaced Seizure disorder G40.909 Constipation K59.00 Hyponatremia E87.1 Peripheral neuropathy G62.9 Manic depression F31.9 (1) Closed intertrochanteric fracture of left hip Encounter type: initial encounter Fracture alignment: displaced Qualified Code(s): S72.142A - Displaced intertrochanteric fracture of left femur, initial encounter for closed fracture
[2023-10-28] MEDS: CYCLOBENZAPRINE HCL 10 MG TAB PO SCH (20:18)
[2023-10-29] MEDS: ACETAMINOPHEN 500 MG TAB PO SCH ×3 (05:50→20:36)
[2023-10-29 07:54] LABS: Basophils # (auto) 0.05 K/uL (0.00-0.20); Basophils % (auto) 0.9 %; Eosinophils # (auto) 0.22 K/uL (0.00-0.50); Eosinophils % (auto) 3.7 %; Hematocrit (blood only) 28.9 % (37.0-47.0); Hemoglobin 9.9 g/dl (12.0-16.0); Immature Granulocytes # (auto) 0.03 K/uL (0.01-0.20); Immature Granulocytes % (auto) 0.5 %; Lymphocytes # (auto) 0.77 K/uL (1.20-3.40); Lymphocytes % (auto) 13.1 %; Mean Corpuscular Hemoglobin 33.2 pg (25.0-34.0); Mean Corpuscular Hgb Conc 34.3 g/dL (32.0-36.0); Mean Platelet Volume 8.7 fL (9.4-12.4); Monocytes # (auto) 0.81 K/uL (0.11-0.59); Monocytes % (auto) 13.8 %; Neutrophils # (auto) 3.99 K/uL (1.40-6.50); Platelet Count 343 K/uL (130-400); RDW Standard Deviation 43.1 fL (36.4-46.3); Red Blood Count 2.98 M/uL (4.20-5.40); White Blood Count 5.87 K/ul (4.8-10.8)
[2023-10-29 08:03] LABS: BUN Creatinine Ratio 16.4 (10-20); Calcium 8.5 mg/dl (8.6-10.3); Creatinine Clr Calc Pharmacy 104.7 ml/min; Est GFR (African American) 108.6 ml/min; Est GFR (Non-African American) 93.7 ml/min; Potassium 3.9 mmol/L (3.5-5.1)
[2023-10-29] MEDS: ENOXAPARIN INJ 30 MG/0.3 ML SYR SQ SCH ×2 (08:24→20:36)
[2023-10-29] MEDS: carBAMazepine XR 100 MG TABCR PO SCH ×2 (08:25→20:33)
[2023-10-29] MEDS: GABAPENTIN 100 MG CAP PO SCH ×3 (08:26→20:35)
[2023-10-29] MEDS: linaCLOtide 72 MCG CAPSULE PO SCH (08:26)
[2023-10-29] MEDS: POLYETHYLENE (MIRALAX) 17 GM PACK PO SCH ×2 (08:27→20:30)
--- NOTE | 2023-10-29 09:51 | Orthopedic Progress Note ---
Date of Service October 29, 2023 Assessment & Plan (1) Closed intertrochanteric fracture of left hip: Plan: POD #4 s/p ORIF L hip fracture, doing as well as expected. WBAT with walker. OOB to chair. Continue pain control. Dressing changed 10/27/23, keep covered while in hospital and change as needed. DVT prophylaxis: TEDs 3 weeks, SCD while in hospital, due to history of DVT switched to Lovenox 30 mg sq for 4 weeks and then start ASA 81 mg BID for 2 we eks. Continue PT/OT Recommended for inpatient rehab, awaiting placement Continue care per primary service. Ok for discharge from ortho standpoint. Follow-up in Dr. Velazquez's office in 2 weeks from surgical date. Number is in discharge instructions for patient to call to set up appointment Admission and Anticipated Discharge Date Admission Date: October 24, 2023 Subjective Patient seen and examined at bedside. She says that she is doing well. She is having bowel movements and she is eating and drinking okay. She is working with physical therapy and she says she was able to get up and walk around. She has also been able to sit in a chair. She has no issues or concerns today. She says that her pain is well-controlled in her hip. Review of Systems Review of Systems: Denies calf pain or any numbness or tingling. Physical Exam Physical Exam: Patient is lying comfortably in her bed. Left lower extremity was examined. Her dressing is clean, dry and intact. Thigh is soft and compressible. She is able to slightly flex her knee. She tolerates logroll. Unable to do a straight leg raise. She is able to dorsiflex and plantarflex her ankle and wiggle all of her toes. Sensation is intact distally to light touch, skin warm and pink and capillary refill less than 2 seconds. Results & Data Vital Signs (Past 12 Hours) Vital Signs Temp Pulse Resp BP Pulse Ox O2 Del Method 10/29/23 06:41 36.7 C 75 16 143/73 H 97 Room Air 10/28/23 21:50 37.1 C 81 16 145/73 H 97 Room Air (1) Closed intertrochanteric fracture of left hip Encounter type: initial encounter Fracture alignment: displaced Qualified Code(s): S72.142A - Displaced intertrochanteric fracture of left femur, initial encounter for closed fracture
[2023-10-29] MEDS: oxyCODONE HCL IR 5 MG TAB (IMMEDIATE RELEASE) PO PRN ×2 (10:21→16:11)
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
--- NOTE | 2023-10-29 15:40 | Hospitalist Progress Note ---
Date of Service October 29, 2023 Assessment & Plan (1) Closed intertrochanteric fracture of left hip: Plan: Suffered an mechanical fall at home. Status post open reduction internal fixation, postoperative day #4. Orthopedic consultation and recommendations appreciated. Since she will be going home, will prescribe aspirin 81 mg twice daily. She is ambulating well and will go home with home OT/PT (2) Seizure disorder: Plan: Stable. Continue current management (3) Constipation: Plan: Aggravated by opioid therapy. Continue Linzess. Addition of MiraLAX has helped quite a bit. (4) Hyponatremia: Plan: Mild. No intervention needed at this time. Serial lab (5) Peripheral neuropathy: Plan: Stable. 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 Continue current medical management. Supportive care Plan Anticipated discharge to home today, October 29, has been canceled because she is adamant about having a hospital bed at home which will not be delivered until tomorrow. Will request home OT and PT at the time of discharge Admission and Anticipated Discharge Date Admission Date: October 24, 2023 Subjective Alert and oriented. She is ambulating quite well. She desires to go home rather than to inpatient rehab. However, she wants a hospital bed at home but in my opinion this is not necessary. Perhaps orthopedic surgery can order a hospital bed if they feel it is necessary. Her current plan is to rent a hospital bed but will be delivered until tomorrow, October 30. She is adamant about not going home until the hospital bed is available. Review of Systems 2 Review of Systems: Constitutional-no fever or chills ENT-no blurred vision, no double vision, no epistaxis, no sore throat Respiratory-no cough, no wheezing, no shortness of breath Cardiac-no palpitations, no chest pain, no syncope GI-no nausea, vomiting, diarrhea, melena, hematochezia. She is constipated -no urinary retention, no urinary incontinence, no dysuria, no hematuria Musculoskeletal-mild postoperative left hip pain is expected. No muscle tenderness Skin-no bruising, no rashes, no pruritus Neuro-no isolated weakness, no paresthesia Psych-no depression, no anxiety Physical Exam 2 Physical Exam: General-alert and oriented x3, no fever, no chills HEENT-head atraumatic and normocephalic, pupils equal and reactive to light, extraocular muscles intact Neck-no lymphadenopathy or thyromegaly, trachea midline Chest-clear to auscultation percussion. No rales, wheezing or rhonchi Cardiac-regular rate and rhythm, normal S1 and S2 Abdomen-normal bowel sounds, nontender, no hepatosplenomegaly Extremities-no cyanosis, clubbing, or edema. Left hip surgical site healing uneventfully Neuro-cranial nerves II through XII intact, motor and sensory function within normal limits, strength symmetrical, no focal deficits Psych-she appears to be somewhat manic Results & Data Results & Data Vital Signs (Past 12 Hours) Vital Signs Temp Pulse Resp BP Pulse Ox O2 Del Method 10/29/23 08:30 Room Air 10/29/23 06:41 36.7 C 75 16 143/73 H 97 Room Air Laboratory Results 10/29/23 07:14 10/29/23 07:14 PG Care Time/CCT Total # of Minutes Spent Total Time Spent with Patient: Total time spent is greater than 50% in coordination of care (as documented) at patient's floor/unit and/or counseling patient: Coding Level of Care Code 79144 SUB INP/OBS CARE 2/35MIN Diagnoses Closed intertrochanteric fracture of left hip S72.142A Encounter type: initial encounter Fracture alignment: displaced Seizure disorder G40.909 Constipation K59.00 Hyponatremia E87.1 Peripheral neuropathy G62.9 Manic depression F31.9 (1) Closed intertrochanteric fracture of left hip Encounter type: initial encounter Fracture alignment: displaced Qualified Code(s): S72.142A - Displaced intertrochanteric fracture of left femur, initial encounter for closed fracture
[2023-10-29] MEDS: CYCLOBENZAPRINE HCL 10 MG TAB PO SCH (20:34)
[2023-10-30] MEDS: oxyCODONE HCL IR 5 MG TAB (IMMEDIATE RELEASE) PO PRN ×2 (00:52→11:23)
[2023-10-30] MEDS: ACETAMINOPHEN 500 MG TAB PO SCH ×2 (05:06→13:06)
[2023-10-30 06:30] VITALS: PULSE 77; TEMP 98.2; O2SAT 94
[2023-10-30] MEDS: GABAPENTIN 100 MG CAP PO SCH ×2 (07:48→13:06)
[2023-10-30] MEDS: linaCLOtide 72 MCG CAPSULE PO SCH (07:48)
[2023-10-30] MEDS: carBAMazepine XR 100 MG TABCR PO SCH (07:49)
[2023-10-30] MEDS: ENOXAPARIN INJ 30 MG/0.3 ML SYR SQ SCH (07:50)
[2023-10-30] MEDS: POLYETHYLENE (MIRALAX) 17 GM PACK PO SCH (07:52)
[2023-10-30 08:36] LABS: Basophils # (auto) 0.05 K/uL (0.00-0.20); Eosinophils # (auto) 0.18 K/uL (0.00-0.50); Eosinophils % (auto) 3.6 %; Hematocrit (blood only) 28.3 % (37.0-47.0); Hemoglobin 9.8 g/dl (12.0-16.0); Immature Granulocytes # (auto) 0.04 K/uL (0.01-0.20); Immature Granulocytes % (auto) 0.8 %; Lymphocytes # (auto) 0.73 K/uL (1.20-3.40); Lymphocytes % (auto) 14.5 %; Mean Corpuscular Hemoglobin 33.7 pg (25.0-34.0); Mean Corpuscular Hgb Conc 34.6 g/dL (32.0-36.0); Mean Corpuscular Volume 97.3 fL (80.0-100.0); Mean Platelet Volume 8.6 fL (9.4-12.4); Monocytes # (auto) 0.84 K/uL (0.11-0.59); Monocytes % (auto) 16.7 %; Neutrophils % (auto) 63.4 %; Platelet Count 383 K/uL (130-400); RDW Coefficient of Variation 11.9 % (11.5-14.5); Red Blood Count 2.91 M/uL (4.20-5.40); White Blood Count 5.04 K/ul (4.8-10.8)
[2023-10-30 08:54] LABS: Calcium 8.6 mg/dl (8.6-10.3); Creatinine Clr Calc Pharmacy 95.9 ml/min; Est GFR (African American) 105.5 ml/min; Est GFR (Non-African American) 91.1 ml/min; Potassium 4.1 mmol/L (3.5-5.1)
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
[2023-10-30 14:15] VITALS: BP 134/72
== END 2023-10-30 15:12 | disposition home health service (06) | DRG 481 ==
LOC: ED 11:59 → SUATTDRO 19:10 → 3N 19:10
DX: F30.9 Manic episode, unspecified; I10 Essential (primary) hypertension; W18.39XA Other fall on same level, initial encounter; S72.142A Displaced intertrochanteric fracture of left femur, initial encounter for closed fracture; D62 Acute posthemorrhagic anemia; K59.00 Constipation, unspecified; Y92.009 Unspecified place in unspecified non-institutional (private) residence as the place of occurrence of the external cause; G62.9 Polyneuropathy, unspecified; E87.1 Hypo-osmolality and hyponatremia; G40.909 Epilepsy, unspecified, not intractable, without status epilepticus